=== PATIENT | female | born 1955 | race African-American/Black ===

== ENCOUNTER 2017-01-23 13:50 | Emergency (ER) | payer OTHER ==
[2017-01-23 13:54] VITALS: BP 177/83; PULSE 79; TEMP 98.6; BMI 24.2
[2017-01-23] MEDS ORDERED: OXYCODONE/APAP 5/325MG COMBO TABLET PO ONE (15:43)
[2017-01-23] MEDS ORDERED: OXYCODONE/APAP 5/325MG COMBO TABLET ONE (15:45)
--- NOTE | 2017-01-23 15:52 | PDOC ---
History of Present Illness - General Chief Complaint: Pain, Acute Stated Complaint: LT LEG PAIN Time Seen by Provider: 01/23/17 15:33 History Source: Patient Exam Limitations: No Limitations - History of Present Illness Initial Comments: 01/23/17 15:45 61 yr female with left lower leg pain to buttock and outer thigh worse with sitting to standing and ambulation. no saddle anesthesia, neg urine or bowel dysfunction. no abd pain. Pt has history of renal disease, DM, HTN. Occurred: reports: other (4 days) Severity: Yes: moderate Lower Extremity Pain Location: left: leg Past History - Past Medical History Allergies/Adverse Reactions: Allergies Allergy/AdvReac Type Severity Reaction Status Date / Time Penicillins Allergy Rash Verified 01/23/17 13:55 Home Medications: Ambulatory Orders Hydralazine HCl [Apresoline] 100 mg PO TID #0 tablet 02/25/13 Labetalol HCl [Trandate] 200 mg PO TID #0 tablet 02/25/13 Losartan Potassium [Cozaar] 100 mg PO HS #0 tablet 02/25/13 Nifedipine ER [Procardia XL -] 60 mg PO DAILY #0 tab.er.24 02/25/13 Torsemide [Demadex -] 100 mg PO DAILY #0 tablet 02/25/13 Cholecalciferol (Vitamin D3) [Vitamin D] 0 unit PO DAILY 06/19/14 Sevelamer Carbonate [Renvela] 2,400 mg PO AC 06/19/14 Oxycodone HCl/Acetaminophen [Percocet 5-325 mg Tablet] 1 - 2 tab PO Q6H PRN #14 tab MDD 6 01/23/17 Diabetes: Yes Dialysis: Yes (PERITONEAL, has right side av fistula not being used) HTN: Yes - Immunization History Immunization Up to Date: Yes - Psycho/Social/Smoking Cessation Hx Anxiety: No Suicidal Ideation: No Smoking Status: Yes Smoking History: Current every day smoker Have you smoked in the past 12 months: Yes Number of Cigarettes Smoked Daily: 10 Information on smoking cessation initiated: No 'Breaking Loose' booklet given: 06/07/16 Hx Alcohol Use: No Drug/Substance Use Hx: No Substance Use Type: None Hx Substance Use Treatment: No Review of Systems - Review of Systems Able to Perform ROS?: Yes Is the patient limited Salvadorean proficient: No Constitutional: No: Symptoms Reported HEENTM: No: Symptoms Reported Respiratory: No: Symptoms reported Cardiac (ROS): No: Symptoms Reported ABD/GI: No: Symptoms Reported : No: Symptoms Reported Musculoskeletal: Yes: See HPI *Physical Exam - Vital Signs Last Vital Signs Temp Pulse Resp BP Pulse Ox 98.6 F 79 18 177/83 98 01/23/17 13:51 01/23/17 13:51 01/23/17 13:51 01/23/17 13:51 01/23/17 13:51 - Physical Exam General Appearance: Yes: Nourished, Appropriately Dressed HEENT: positive: EOMI, DERRICK Neck: positive: Supple Respiratory/Chest: positive: Lungs Clear, Normal Breath Sounds Cardiovascular: positive: Regular Rhythm, Regular Rate Gastrointestinal/Abdominal: positive: Normal Bowel Sounds, Soft. negative: Tender Lymphatic: negative: Adenopathy Musculoskeletal: positive: Normal Inspection, Decreased Range of Motion. negative: CVA Tenderness, CVA Tenderness (R) Extremity: positive: Normal Capillary Refill, Normal Inspection, Normal Range of Motion, Other (point tenderness to left buttock muslce area ) ED Treatment Course - RADIOLOGY Radiology Studies Ordered: Category Date Time Status SPINE-LUMBAR ONLY [RAD] Stat Radiology 01/23/17 15:43 Ordered Medical Decision Making - Medical Decision Making 01/23/17 15:47 cc: left leg pain for 4 days getting worse , no trauma, pt states pain is in her left buttock radiates to outer thigh and calf worse with sitting and lying down. neg numbness or tingling neg saddle anesthesia neg bowel or urine complaints pt with kidney disease unable to have NSAIDS, diabetic unable to have steroids will give percocet *DC/Admit/Observation/Transfer Diagnosis at time of Disposition: Sciatic leg pain - Discharge Dispostion Disposition: HOME Condition at time of disposition: Good - Prescriptions Prescriptions: Oxycodone HCl/Acetaminophen [Percocet 5-325 mg Tablet] 1 - 2 tab PO Q6H PRN #14 tab MDD 6 PRN Reason: Severe Pain - Referrals Referrals: Ankit Ariza MD [Primary Care Provider] - Cornell Lanza MD [Staff Physician] - - Patient Instructions Additional Instructions: please call the orthopedist on Tuesday or see your primary care doctor for follow up take the percocet for severe pain also apply Biofreeze or Icy Hot rubbing cream (over the counter) to low back to left buttock
== END 2017-01-23 16:40 | disposition home or self-care (01) ==
LOC: SUPCPDRO 13:50 → JERFT 13:50
DX: M54.42 Lumbago with sciatica, left side (principal); I12.0 Hypertensive chronic kidney disease with stage 5 chronic kidney disease or end stage renal disease; E11.22 Type 2 diabetes mellitus with diabetic chronic kidney disease; N18.6 End stage renal disease; N17.8 Other acute kidney failure; Z99.2 Dependence on renal dialysis; Z79.84 Long term (current) use of oral hypoglycemic drugs
CPT/HCPCS: 72100-TC; 99281-25

== ENCOUNTER 2017-06-01 14:59 | Day surgery (SDC) | payer OTHER, MEDICARE ==
[2017-05-31 17:11] VITALS: BMI 24.2
[2017-06-01] MEDS ORDERED: VANCOMYCIN 1,000 MG VIAL (RESTRICTED TO ID ONLY) ONE (15:37)
--- NOTE | 2017-06-01 16:32 | HP ---
[facility] - Chief Complaint History of Present Illness: 61 year old woman with renal failure on dialysis. She was using PD catheetr which was removed 10 days ago due to skin infection. SHe has AV fistula for hemodialysis. - Past Medical History Allergies/Adverse Reactions: Allergies Allergy/AdvReac Type Severity Reaction Status Date / Time Penicillins Allergy Rash Verified 06/01/17 15:35 Cardiovascular: Yes: HTN Renal/: Yes: Renal Failure Endocrine: Yes: Diabetes Mellitus - Current Medications Current Medications: Home Medications Medication Instructions Recorded Hydralazine HCl [Apresoline] 100 mg PO TID #0 tablet 02/25/13 Labetalol HCl [Trandate] 200 mg PO TID #0 tablet 02/25/13 Losartan Potassium [Cozaar] 100 mg PO HS #0 tablet 02/25/13 Nifedipine ER [Procardia XL -] 60 mg PO DAILY #0 tab.er.24 02/25/13 Torsemide [Demadex -] 100 mg PO DAILY #0 tablet 02/25/13 Cholecalciferol (Vitamin D3) 0 unit PO DAILY 06/19/14 [Vitamin D] Sevelamer Carbonate [Renvela] 2,400 mg PO AC 06/19/14 Cinacalcet HCl [Sensipar] 60 mg PO 05/31/17 Glipizide 5 mg PO 05/31/17 [facility] Physical Exam - Physical Examination Vital Signs: Vital Signs Period Temp Pulse Resp BP Sys/Alvarez Pulse Ox Last 24 Hr 98.0 F 72 16 148/78 96 General Appearance: Well Developed ENT: Clear Lung: Clear to auscultation Heart: Regular rate & rhythm Abdomen: Soft, Other (Lower abdominal ancision clean and dry. Sutures intact) [facility] Impression/Plan - Impression/Plan Impression: ESRD. Patient wants to continue with peritoneal dialysis. Operative Procedure: Laparoscopic placement of peritoneal dialysis catheter Date to be Performed: 06/01/17
[2017-06-01] MEDS ORDERED: ROCURONIUM BROMIDE 50 MG/5 ML VIAL ONE (16:57)
[2017-06-01] MEDS ORDERED: MIDAZOLAM HCL 2 MG/2 ML SINGLE DOSE VIAL ONE (16:57)
[2017-06-01] MEDS ORDERED: VANCOMYCIN 1,000 MG VIAL (RESTRICTED TO ID ONLY) IVPB ONE (17:26)
[2017-06-01] MEDS ORDERED: DEXAMETHASONE SOD PHOSPHATE 4 MG/1 ML VIAL ONE (17:45)
[2017-06-01] MEDS ORDERED: BUPIVACAINE HCL/PF 0.5% (5MG/ML) 10 ML VIAL IJ ONE ×2 (17:52)
[2017-06-01] MEDS ORDERED: GLYCOPYRROLATE 0.2 MG/1 ML VIAL ONE (17:57)
[2017-06-01] MEDS ORDERED: NEOSTIGMINE METHYLSULFATE 0.5 MG/ML - 10 ML MDV ONE (17:57)
--- NOTE | 2017-06-01 17:59 | OP ---
Operative Note - Note: Operative Date: 06/01/17 Pre-Operative Diagnosis: ESRD on dialysis Operation: Laparoscopic placement of peritoneal dialysis catheter Findings: No adhesions. Implants: [place] neck pigtail tenckhoff Post-Operative Diagnosis: Same as Pre-op Surgeon: Marlon Roth Anesthesiologist/STEEL UNLOADER: Quin Graham Anesthesia: General
[2017-06-01] MEDS ORDERED: oxyCODONE HCL 5 MG TABLET PO PRN ×4 (18:03→18:05)
[2017-06-01] MEDS ORDERED: ACETAMINOPHEN 325 MG TABLET (FP) PO PRN ×4 (18:03→18:05)
[2017-06-01] MEDS ORDERED: ONDANSETRON 4 MG/2 ML VIAL IVPUSH PRN (18:13)
[2017-06-01 18:56] VITALS: TEMP 98.2
--- NOTE | 2017-06-01 20:22 | OP ---
DATE OF OPERATION: 06/01/2017 SURGEON: Marlon Roth M.D. PROCEDURE: Laparoscopic placement of peritoneal dialysis catheter. INDICATION: End-stage renal disease on dialysis. POSTOPERATIVE DIAGNOSIS: End-stage renal disease on dialysis. ANESTHESIA: General. ANESTHESIOLOGIST: Quin Graham D.O. OPERATIVE FINDINGS: Peritoneal cavity was free of adhesions. There was some ascitic fluid in the pelvis upon entering. OPERATIVE PROCEDURE: Following routine patient identification, general anesthesia was induced. The abdomen was prepped with Chloraprep. Timeout was performed. Then 0.5% Marcaine was infiltrated subcutaneously in the midline in the upper abdomen , and a 5-mm skin incision made. A 5-mm Visiport was then inserted under direct laparoscopic visualization, entering the peritoneal cavity. Pneumoperitoneum was established with carbon dioxide to 15 mmHg and then 5-mm angled laparoscope was inserted. Additional Marcaine was infiltrated to the left of the midline just above the umbilicus, and then an 8-mm incision was made. An 8-mm blunt port trocar was then advanced until the tip was seen on top of the peritoneum. The port was then directed inferiorly towards the pelvis, and then to the peritoneal cavity below the umbilicus. A pigtail double-cuff Tenckhoff catheter was then advanced through the port and positioned in the pelvis. The cuff was left just above the fascia. The port was removed. The end of the tube was attached to a curved tunnel, which was passed subcutaneously to exit on the right abdominal wall at the previously chosen site. The Luer-Nirali adaptor was attached to the tubing, and then 1 L of saline was run into the peritoneal cavity after removing the carbon dioxide. This took approximately 3 minutes. The bag was dropped to the floor, and the fluid drained rapidly. Ports were removed. The incisions were closed with subcutaneous sutures of 3-0 Vicryl and subcuticular suture of 4-0 Biosyn. Dermabond glue was applied as a dressing. The catheter was covered with a Biopatch and Tegaderm, and then an ABD pad was placed over the tubing. Patient was then awakened from anesthesia and taken to the recovery room in stable condition. Lex WARD/[id number] MTDD
[2017-06-01 20:36] VITALS: BP 153/64; PULSE 79
== END 2017-06-01 19:30 | disposition home or self-care (01) ==
LOC: JASU-SURG 14:59
PROVIDERS: ATTEND Surgery
PROC: 0WHG43Z Insertion of Infusion Device into Peritoneal Cavity, Percutaneous Endoscopic Approach (ICD-10-PCS; principal; 2017-06-01 16:30)
DX: I12.0 Hypertensive chronic kidney disease with stage 5 chronic kidney disease or end stage renal disease (principal); E11.22 Type 2 diabetes mellitus with diabetic chronic kidney disease; N18.6 End stage renal disease; Z72.0 Tobacco use
CPT/HCPCS: 36415; 84132; 94760

== ENCOUNTER 2021-12-18 13:42 | Emergency (ER) | payer OTHER, MEDICARE ==
[2021-12-18 13:59] VITALS: BP 133/79; PULSE 93; TEMP 98; BMI 24.9
[2021-12-18 15:30] LABS: BASO % 1.1 % (0-2.0); EOS % 3.5 % (0-4.5); HEMATOCRIT 27.1 % (32.4-45.2); LYMPH % 16.4 % (8-40); MCH 30.9 pg (25.7-33.7); MCHC 33.1 g/dl (32.0-36.0); MEAN CELL VOLUME 93.4 fl (80-96); MEAN PLT VOLUME 8.4 fl (7.5-11.1); PLATELET COUNT 237 10^3/uL (134-434); RDW 15.2 % (11.6-15.6); WHITE BLOOD COUNT 4.8 K/mm3 (4.0-10.0)
[2021-12-18 15:37] LABS: INR 1.8 (0.83-1.09); PROTHROMBIN TIME (PATIENT) 20.8 SEC (9.7-13.0)
[2021-12-18 15:40] LABS: ACTIVATED PTT 35.6 SECONDS (25.2-36.5)
[2021-12-18 15:54] LABS: CHLORIDE 92 mmol/L (98-107); SODIUM 133 mmol/L (136-145)
[2021-12-18 15:56] LABS: CALCIUM 8.9 mg/dL (8.5-10.1)
[2021-12-18 15:57] LABS: ALBUMIN 1.9 g/dl (3.4-5.0); ANION GAP 12 MMOL/L (8-16); CO2 29 mmol/L (21-32); GLUCOSE,RANDOM 209 mg/dL (74-106); MAGNESIUM 2.1 mg/dL (1.8-2.4)
[2021-12-18 16:00] LABS: PHOSPHOROUS 5.9 mg/dL (2.5-4.9); SGOT/AST 13 U/L (15-37); SGPT/ALT 12 U/L (13-61)
[2021-12-18 16:01] LABS: TOT PROT 5.5 g/dl (6.4-8.2)
[2021-12-18 16:02] LABS: ALK PHOS 180 U/L (45-117); BILIRUBIN,TOTAL 0.5 mg/dL (0.2-1)
[2021-12-18 16:09] LABS: BLOOD UREA NITROGEN 136.4 mg/dL (7-18); CREATININE 9.9 mg/dL (0.55-1.3)
[2021-12-18] MEDS ORDERED: SODIUM CHLORIDE 250 ML IV PRN ×2 (16:48→16:53)
== END 2021-12-18 17:18 | disposition left against medical advice (07) ==
LOC: JER 13:42
DX: Z53.21 Procedure and treatment not carried out due to patient leaving prior to being seen by health care provider (principal)
CPT/HCPCS: 36415; 71045-TC-FY; 74019-TC-FY; 80053; 83735; 84100; 85025; 85610; 85730; 86850; 86900; 86901; 93005; 93010; 99281-25

== ENCOUNTER 2023-03-01 17:41 | Inpatient (IN) | payer OTHER, MEDICARE ==
[2023-03-01] MEDS ORDERED: ACETAMINOPHEN 1000 MG/100 ML BAG IVPB ONE (19:09)
[2023-03-01] MEDS ORDERED: PIPERACILLIN/TAZOB 4.5 GM 4.5 GM in DEXTROSE 5%-WATER 100 ML IVPB ONE (20:25)
[2023-03-01] MEDS ORDERED: VANCOMYCIN 1 GM in D5W (PRE-DOCKED) 1,000 MG/250 ML (RESTRICTED TO ID ONLY IVPB ONE (20:26)
[2023-03-01] MEDS ORDERED: ACETAMINOPHEN INJECTION 100 ML IVPB ONE (20:34)
[2023-03-01] MEDS ORDERED: LORazepam 2 MG TABLET PO ONE (20:34)
[2023-03-01] MEDS ORDERED: PIPERACILLIN/TAZOB 3.375 GM 3.375 GM/50 ML BAG IVPB ONE (20:35)
[2023-03-01] MEDS ORDERED: LORazepam 0.5 MG TABLET ONE (21:01)
[2023-03-01] MEDS ORDERED: VANCOMYCIN/WATER FOR INJ (PEG) 1,000 MG/200 ML BAG IVPB ONE (21:02)
[2023-03-01 21:11] LABS: BASO % 0.7 % (0-2.0); EOS % 0.8 % (0-4.5); HEMATOCRIT 30.6 % (32.4-45.2); HEMOGLOBIN 9.8 GM/dL (10.7-15.3); LYMPH % 4.9 % (8-40); MCH 31.1 pg (25.7-33.7); MCHC 32.2 g/dl (32.0-36.0); MEAN CELL VOLUME 96.6 fl (80-96); MEAN PLT VOLUME 8.6 fl (7.5-11.1); MONO % 2.9 % (3.8-10.2); NEUT % 90.7 % (42.8-82.8); PLATELET COUNT 258 10^3/uL (134-434); RBC 3.16 M/mm3 (3.60-5.2); RDW 16.9 % (11.6-15.6); WHITE BLOOD COUNT 12.7 K/mm3 (4.0-10.0)
[2023-03-01 21:14] LABS: CHLORIDE 97 mmol/L (98-107); POTASSIUM 4.5 mmol/L (3.5-5.1); SODIUM 134 mmol/L (136-145)
[2023-03-01 21:16] LABS: CALCIUM 7.9 mg/dL (8.5-10.1)
[2023-03-01 21:17] LABS: ALBUMIN 1.3 g/dl (3.4-5.0); ANION GAP 14 MMOL/L (8-16); BLOOD UREA NITROGEN 82.3 mg/dL (7-18); CO2 23 mmol/L (21-32)
[2023-03-01 21:19] LABS: INR 1.24 (0.83-1.09); PROTHROMBIN TIME (PATIENT) 14.3 SEC (9.7-13.0)
[2023-03-01 21:20] LABS: SGOT/AST 19 U/L (15-37); SGPT/ALT 15 U/L (13-61)
[2023-03-01 21:21] LABS: ACTIVATED PTT 29.2 SECONDS (25.2-36.5); BILIRUBIN,TOTAL 0.4 mg/dL (0.2-1)
[2023-03-01 21:23] LABS: ALK PHOS 157 U/L (45-117); CREATININE 10.8 mg/dL (0.55-1.3); GLUCOSE,RANDOM 430 mg/dL (74-106); TOT PROT 5.6 g/dl (6.4-8.2)
[2023-03-01] MEDS ORDERED: INSULIN (NOVOLOG) ASPART 100 UNITS/ML 10ML VIAL SQ ONE (22:55)
[2023-03-02 00:22] LABS: CHLORIDE 97 mmol/L (98-107); SODIUM 133 mmol/L (136-145)
[2023-03-02 00:23] LABS: CALCIUM 7.7 mg/dL (8.5-10.1)
[2023-03-02 00:24] LABS: ANION GAP 14 MMOL/L (8-16); BLOOD UREA NITROGEN 84.5 mg/dL (7-18); CO2 22 mmol/L (21-32); GLUCOSE,RANDOM 390 mg/dL (74-106)
[2023-03-02 00:37] LABS: CREATININE 10.7 mg/dL (0.55-1.3)
[2023-03-02] MEDS: INSULIN (LEVEMIR) 100 UNITS/ML UNITS SQ SCH (06:56)
[2023-03-02] MEDS: INSULIN SLIDING SCALE (NOVOLOG) 1 VIAL SQ SCH ×4 (06:57→22:06)
[2023-03-02] MEDS ORDERED: HYDROmorphone HCl 2 MG/ML VIAL IVPUSH PRN (07:08)
[2023-03-02] MEDS ORDERED: HYDROmorphone HCl 2 MG/ML VIAL IVPUSH ONE (07:11)
[2023-03-02] MEDS ORDERED: PIPERACILLIN/TAZOB 2.25 GM 2.25 GM in DEXTROSE 5%-WATER - 50 ML IVPB SCH (08:00)
[2023-03-02] MEDS: PANTOPRAZOLE 40 MG TABLET PO SCH (09:52)
[2023-03-02] MEDS: VITAMIN B COMP W-C 1 EA TABLET (NEPHRO-VITE) PO SCH (09:52)
[2023-03-02 10:28] LABS: HEMATOCRIT 28.5 % (32.4-45.2); HEMOGLOBIN 9.4 GM/dL (10.7-15.3); MCH 31.5 pg (25.7-33.7); MEAN CELL VOLUME 95.3 fl (80-96); MEAN PLT VOLUME 8.9 fl (7.5-11.1); PLATELET COUNT 265 10^3/uL (134-434); RBC 2.99 M/mm3 (3.60-5.2); RDW 16.5 % (11.6-15.6); WHITE BLOOD COUNT 12.7 K/mm3 (4.0-10.0)
[2023-03-02 10:51] LABS: CHLORIDE 97 mmol/L (98-107); SODIUM 132 mmol/L (136-145)
[2023-03-02 10:56] LABS: BLOOD UREA NITROGEN 89.6 mg/dL (7-18); GLUCOSE,RANDOM 166 mg/dL (74-106)
[2023-03-02 10:59] LABS: PHOSPHOROUS 5.2 mg/dL (2.5-4.9); SGOT/AST 16 U/L (15-37); SGPT/ALT 16 U/L (13-61)
[2023-03-02 11:01] LABS: BILIRUBIN,TOTAL 0.4 mg/dL (0.2-1); TOT PROT 5.2 g/dl (6.4-8.2)
[2023-03-02 11:02] LABS: ALK PHOS 149 U/L (45-117)
[2023-03-02 11:05] LABS: CALCIUM 8.1 mg/dL (8.5-10.1)
[2023-03-02 11:06] LABS: ALBUMIN 1.2 g/dl (3.4-5.0); ANION GAP 14 MMOL/L (8-16); CO2 22 mmol/L (21-32); MAGNESIUM 1.9 mg/dL (1.8-2.4)
[2023-03-02 11:08] LABS: CREATININE 11.1 mg/dL (0.55-1.3)
[2023-03-02] MEDS: CEFTRIAXONE 1 GM in DEXTROSE 5%-WATER - 50 ML IVPB SCH (12:38)
[2023-03-02] MEDS ORDERED: PERITONEAL DIALYSIS 2.5% SOLN 2,500 ML IP SCH (13:00)
[2023-03-02] MEDS ORDERED: SODIUM CHLORIDE 250 ML IV PRN (13:57)
[2023-03-02] MEDS: HEPARIN NA (PORCINE) 5,000 UNITS/ML 1ML VIAL SQ SCH ×2 (14:31→22:05)
[2023-03-02] MEDS ORDERED: CLOPIDOGREL BISULFATE 75 MG TABLET (FP) PO SCH (14:35)
[2023-03-02] MEDS ORDERED: oxyCODONE HCL 5 MG TABLET PO PRN (18:19)
[2023-03-02] MEDS ORDERED: ATORVASTATIN CA 80 MG TABLET (FP) PO SCH (22:00)
[2023-03-02] MEDS ORDERED: AMIODARONE HCL 200 MG TABLET PO SCH (22:00)
[2023-03-03] MEDS: HEPARIN NA (PORCINE) 5,000 UNITS/ML 1ML VIAL SQ SCH (06:33)
[2023-03-03] MEDS: INSULIN (LEVEMIR) 100 UNITS/ML UNITS SQ SCH (06:33)
[2023-03-03] MEDS: INSULIN SLIDING SCALE (NOVOLOG) 1 VIAL SQ SCH ×4 (06:33→21:42)
[2023-03-03 09:25] LABS: HEMATOCRIT 31.1 % (32.4-45.2); MCH 30.9 pg (25.7-33.7); MCHC 32.1 g/dl (32.0-36.0); MEAN CELL VOLUME 96.4 fl (80-96); MEAN PLT VOLUME 8.6 fl (7.5-11.1); PLATELET COUNT 261 10^3/uL (134-434); RBC 3.23 M/mm3 (3.60-5.2); RDW 16.9 % (11.6-15.6); WHITE BLOOD COUNT 9.5 K/mm3 (4.0-10.0)
[2023-03-03 09:33] LABS: INR 1.27 (0.83-1.09); PROTHROMBIN TIME (PATIENT) 14.7 SEC (9.7-13.0)
[2023-03-03 09:35] LABS: ACTIVATED PTT 29.9 SECONDS (25.2-36.5)
[2023-03-03] MEDS ORDERED: MIDAZOLAM HCL 2 MG/2 ML SINGLE DOSE VIAL ONE (09:38)
[2023-03-03 09:49] LABS: CHLORIDE 100 mmol/L (98-107); POTASSIUM 4.5 mmol/L (3.5-5.1); SODIUM 137 mmol/L (136-145)
[2023-03-03 09:59] LABS: ANION GAP 12 MMOL/L (8-16); BLOOD UREA NITROGEN 68.2 mg/dL (7-18); CALCIUM 8.4 mg/dL (8.5-10.1); CO2 24 mmol/L (21-32); GLUCOSE,RANDOM 76 mg/dL (74-106); MAGNESIUM 1.8 mg/dL (1.8-2.4)
[2023-03-03] MEDS ORDERED: CLOPIDOGREL BISULFATE 75 MG TABLET (FP) PO SCH ×2 (10:00)
[2023-03-03 10:05] LABS: CREATININE 9.2 mg/dL (0.55-1.3)
[2023-03-03] MEDS: CEFTRIAXONE 1 GM in DEXTROSE 5%-WATER - 50 ML IVPB SCH (10:05)
[2023-03-03] MEDS: VITAMIN B COMP W-C 1 EA TABLET (NEPHRO-VITE) PO SCH (10:05)
[2023-03-03] MEDS: PANTOPRAZOLE 40 MG TABLET PO SCH (10:05)
[2023-03-03] MEDS ORDERED: HEPARIN NA (PORCINE) 5,000 UNITS/ML 1ML VIAL ONE (14:14)
[2023-03-03] MEDS ORDERED: LIDOCAINE HCL 1%, 10 MG/ML (10ML VIAL) MDV ONE (14:15)
[2023-03-03] MEDS ORDERED: SODIUM CHLORIDE 250 ML IV PRN ×2 (14:50→17:27)
[2023-03-03] MEDS ORDERED: IOHEXOL 300 MG/ML INFUS..BTL IV ONE ×2 (15:04)
[2023-03-03] MEDS ORDERED: LIDOCAINE HCL 1%, 10 MG/ML (50 mL VIAL) INF ONE ×2 (15:04)
[2023-03-03] MEDS ORDERED: HEPARIN NA (PORCINE) 5,000 UNITS/ML 1ML VIAL SQ ONE (15:04)
[2023-03-03] MEDS ORDERED: CLINDAMYCIN 600 MG PREMIX BAG IVPB ONE (15:15)
[2023-03-03] MEDS ORDERED: ONDANSETRON 4 MG/2 ML VIAL IVPUSH PRN ×2 (17:11→17:27)
[2023-03-03] MEDS ORDERED: LACTATED RINGERS SOLUTION 1,000 ML IV SCH ×2 (17:15→17:27)
[2023-03-03] MEDS: AMIODARONE HCL 200 MG TABLET PO SCH (21:42)
[2023-03-03] MEDS: ATORVASTATIN CA 80 MG TABLET (FP) PO SCH (21:42)
[2023-03-04] MEDS: INSULIN SLIDING SCALE (NOVOLOG) 1 VIAL SQ SCH ×5 (06:31→22:26)
[2023-03-04] MEDS: HEPARIN NA (PORCINE) 5,000 UNITS/ML 1ML VIAL SQ SCH ×3 (06:33→21:15)
[2023-03-04] MEDS: INSULIN (LEVEMIR) 100 UNITS/ML UNITS SQ SCH (06:34)
[2023-03-04 08:20] LABS: CHLORIDE 100 mmol/L (98-107); POTASSIUM 5.3 mmol/L (3.5-5.1); SODIUM 136 mmol/L (136-145)
[2023-03-04 08:22] LABS: CALCIUM 8.6 mg/dL (8.5-10.1)
[2023-03-04 08:23] LABS: ALBUMIN 1.3 g/dl (3.4-5.0); ANION GAP 14 MMOL/L (8-16); BLOOD UREA NITROGEN 81.2 mg/dL (7-18); CO2 21 mmol/L (21-32); GLUCOSE,RANDOM 132 mg/dL (74-106); MAGNESIUM 1.9 mg/dL (1.8-2.4)
[2023-03-04 08:26] LABS: PHOSPHOROUS 6.8 mg/dL (2.5-4.9); SGOT/AST 13 U/L (15-37); SGPT/ALT 12 U/L (13-61)
[2023-03-04 08:27] LABS: TOT PROT 5.2 g/dl (6.4-8.2)
[2023-03-04 08:28] LABS: BILIRUBIN,TOTAL 0.4 mg/dL (0.2-1)
[2023-03-04 08:29] LABS: ALK PHOS 133 U/L (45-117)
[2023-03-04 08:30] LABS: CREATININE 10.2 mg/dL (0.55-1.3)
[2023-03-04] MEDS ORDERED: ASPIRIN 81 MG CHEWABLE TABLETS PO SCH (10:00)
[2023-03-04] MEDS: PANTOPRAZOLE 40 MG TABLET PO SCH (10:57)
[2023-03-04] MEDS: CLOPIDOGREL BISULFATE 75 MG TABLET (FP) PO SCH (10:57)
[2023-03-04] MEDS: CEFTRIAXONE 1 GM in DEXTROSE 5%-WATER - 50 ML IVPB SCH (10:57)
[2023-03-04] MEDS: VITAMIN B COMP W-C 1 EA TABLET (NEPHRO-VITE) PO SCH (10:57)
[2023-03-04 14:37] LABS: HEMATOCRIT 29.1 % (32.4-45.2); HEMOGLOBIN 9.4 GM/dL (10.7-15.3); MCH 30.4 pg (25.7-33.7); MCHC 32.2 g/dl (32.0-36.0); MEAN CELL VOLUME 94.4 fl (80-96); MEAN PLT VOLUME 8.4 fl (7.5-11.1); PLATELET COUNT 329 10^3/uL (134-434); RBC 3.08 M/mm3 (3.60-5.2); RDW 16.7 % (11.6-15.6)
[2023-03-04 21:03] LABS: POTASSIUM 4.1 mmol/L (3.5-5.1)
[2023-03-04 21:04] LABS: CALCIUM 8.1 mg/dL (8.5-10.1)
[2023-03-04 21:08] LABS: CREATININE 6.1 mg/dL (0.55-1.3)
[2023-03-04] MEDS: AMIODARONE HCL 200 MG TABLET PO SCH (21:15)
[2023-03-04] MEDS: ATORVASTATIN CA 80 MG TABLET (FP) PO SCH (21:15)
[2023-03-04 21:21] LABS: BLOOD UREA NITROGEN 40.5 mg/dL (7-18)
[2023-03-04] MEDS ORDERED: INSULIN (NOVOLOG) ASPART 100 UNITS/ML 10ML VIAL ONE (21:23)
[2023-03-05] MEDS: HEPARIN NA (PORCINE) 5,000 UNITS/ML 1ML VIAL SQ SCH ×3 (06:25→21:48)
[2023-03-05] MEDS: INSULIN (LEVEMIR) 100 UNITS/ML UNITS SQ SCH (06:25)
[2023-03-05] MEDS: INSULIN SLIDING SCALE (NOVOLOG) 1 VIAL SQ SCH ×4 (06:26→21:52)
[2023-03-05] MEDS ORDERED: INSULIN (NOVOLOG) ASPART 100 UNITS/ML 10ML VIAL ONE ×2 (07:19→16:41)
[2023-03-05 09:47] LABS: HEMATOCRIT 27.2 % (32.4-45.2); HEMOGLOBIN 8.8 GM/dL (10.7-15.3); MCH 30.8 pg (25.7-33.7); MCHC 32.2 g/dl (32.0-36.0); MEAN CELL VOLUME 95.5 fl (80-96); MEAN PLT VOLUME 8.6 fl (7.5-11.1); PLATELET COUNT 279 10^3/uL (134-434); RBC 2.84 M/mm3 (3.60-5.2); RDW 16.5 % (11.6-15.6); WHITE BLOOD COUNT 8.5 K/mm3 (4.0-10.0)
[2023-03-05] MEDS: VITAMIN B COMP W-C 1 EA TABLET (NEPHRO-VITE) PO SCH (10:17)
[2023-03-05] MEDS: CEFTRIAXONE 1 GM in DEXTROSE 5%-WATER - 50 ML IVPB SCH (10:17)
[2023-03-05] MEDS: CLOPIDOGREL BISULFATE 75 MG TABLET (FP) PO SCH (10:17)
[2023-03-05] MEDS: PANTOPRAZOLE 40 MG TABLET PO SCH (10:17)
[2023-03-05 17:08] LABS: IRON SERUM 28 ug/dL (50-175); TOTAL IRON BINDING CAPACITY 111 ug/dL (250-450)
[2023-03-05 17:26] LABS: RETICULOCYTES 1.59 % (0.5-1.5)
[2023-03-05] MEDS: ATORVASTATIN CA 80 MG TABLET (FP) PO SCH (21:47)
[2023-03-05] MEDS: AMIODARONE HCL 200 MG TABLET PO SCH (21:48)
[2023-03-06] MEDS: HEPARIN NA (PORCINE) 5,000 UNITS/ML 1ML VIAL SQ SCH ×3 (05:29→22:27)
[2023-03-06] MEDS: INSULIN (LEVEMIR) 100 UNITS/ML UNITS SQ SCH (06:04)
[2023-03-06] MEDS: INSULIN SLIDING SCALE (NOVOLOG) 1 VIAL SQ SCH ×4 (06:04→22:30)
[2023-03-06 09:32] LABS: HEMATOCRIT 26.3 % (32.4-45.2); HEMOGLOBIN 8.7 GM/dL (10.7-15.3); MCH 31.6 pg (25.7-33.7); MCHC 33.2 g/dl (32.0-36.0); MEAN CELL VOLUME 95.3 fl (80-96); PLATELET COUNT 283 10^3/uL (134-434); RBC 2.76 M/mm3 (3.60-5.2); RDW 16.1 % (11.6-15.6); WHITE BLOOD COUNT 7.9 K/mm3 (4.0-10.0)
[2023-03-06 09:33] LABS: BASO % 0.8 % (0-2.0); EOS % 1.3 % (0-4.5); LYMPH % 11.3 % (8-40); MEAN PLT VOLUME 8.2 fl (7.5-11.1); MONO % 5.6 % (3.8-10.2)
[2023-03-06 10:14] LABS: CHLORIDE 99 mmol/L (98-107); POTASSIUM 4.5 mmol/L (3.5-5.1); SODIUM 136 mmol/L (136-145)
[2023-03-06 10:16] LABS: ALBUMIN 1.2 g/dl (3.4-5.0); ANION GAP 11 MMOL/L (8-16); BLOOD UREA NITROGEN 52.8 mg/dL (7-18); CALCIUM 8.4 mg/dL (8.5-10.1); CO2 26 mmol/L (21-32); GLUCOSE,RANDOM 186 mg/dL (74-106); MAGNESIUM 1.8 mg/dL (1.8-2.4)
[2023-03-06 10:19] LABS: PHOSPHOROUS 5.6 mg/dL (2.5-4.9); SGOT/AST 15 U/L (15-37); SGPT/ALT 13 U/L (13-61)
[2023-03-06 10:21] LABS: BILIRUBIN,TOTAL 0.3 mg/dL (0.2-1); TOT PROT 5.3 g/dl (6.4-8.2)
[2023-03-06 10:22] LABS: ALK PHOS 147 U/L (45-117)
[2023-03-06 10:27] LABS: CREATININE 8.2 mg/dL (0.55-1.3)
[2023-03-06] MEDS: CEFTRIAXONE 1 GM in DEXTROSE 5%-WATER - 50 ML IVPB SCH (10:39)
[2023-03-06] MEDS: VITAMIN B COMP W-C 1 EA TABLET (NEPHRO-VITE) PO SCH (10:39)
[2023-03-06] MEDS: PANTOPRAZOLE 40 MG TABLET PO SCH (10:39)
[2023-03-06] MEDS: CLOPIDOGREL BISULFATE 75 MG TABLET (FP) PO SCH (10:39)
[2023-03-06] MEDS: SEVELAMER CARBONATE 800 MG TAB (FP) PO SCH (16:50)
[2023-03-06] MEDS: AMIODARONE HCL 200 MG TABLET PO SCH (22:27)
[2023-03-06] MEDS: ATORVASTATIN CA 80 MG TABLET (FP) PO SCH (22:27)
[2023-03-07] MEDS: INSULIN SLIDING SCALE (NOVOLOG) 1 VIAL SQ SCH ×4 (06:15→22:35)
[2023-03-07] MEDS: HEPARIN NA (PORCINE) 5,000 UNITS/ML 1ML VIAL SQ SCH ×3 (06:15→22:30)
[2023-03-07] MEDS: INSULIN (LEVEMIR) 100 UNITS/ML UNITS SQ SCH (06:15)
[2023-03-07] MEDS: SEVELAMER CARBONATE 800 MG TAB (FP) PO SCH ×3 (08:35→17:42)
[2023-03-07] MEDS ORDERED: SODIUM CHLORIDE 250 ML IV PRN (09:21)
[2023-03-07] MEDS: VITAMIN B COMP W-C 1 EA TABLET (NEPHRO-VITE) PO SCH (09:22)
[2023-03-07] MEDS: PANTOPRAZOLE 40 MG TABLET PO SCH (09:22)
[2023-03-07] MEDS: CLOPIDOGREL BISULFATE 75 MG TABLET (FP) PO SCH (09:22)
[2023-03-07] MEDS: CEFTRIAXONE 1 GM in DEXTROSE 5%-WATER - 50 ML IVPB SCH (09:22)
[2023-03-07 10:33] LABS: EOS % 2.1 % (0-4.5); HEMATOCRIT 28.2 % (32.4-45.2); HEMOGLOBIN 9.2 GM/dL (10.7-15.3); LYMPH % 10.1 % (8-40); MCH 31.2 pg (25.7-33.7); MCHC 32.6 g/dl (32.0-36.0); MEAN CELL VOLUME 95.8 fl (80-96); MONO % 5.2 % (3.8-10.2); NEUT % 81.6 % (42.8-82.8); PLATELET COUNT 296 10^3/uL (134-434); RBC 2.95 M/mm3 (3.60-5.2); RDW 16.4 % (11.6-15.6); WHITE BLOOD COUNT 8.4 K/mm3 (4.0-10.0)
[2023-03-07 10:45] LABS: CHLORIDE 99 mmol/L (98-107); POTASSIUM 5.2 mmol/L (3.5-5.1); SODIUM 138 mmol/L (136-145)
[2023-03-07 10:52] LABS: ALBUMIN 1.3 g/dl (3.4-5.0); ANION GAP 14 MMOL/L (8-16); BLOOD UREA NITROGEN 63.7 mg/dL (7-18); CALCIUM 8.5 mg/dL (8.5-10.1); CO2 25 mmol/L (21-32)
[2023-03-07 10:53] LABS: GLUCOSE,RANDOM 192 mg/dL (74-106); SGOT/AST 15 U/L (15-37); SGPT/ALT 14 U/L (13-61)
[2023-03-07 10:54] LABS: BILIRUBIN,TOTAL 0.3 mg/dL (0.2-1); TOT PROT 5.4 g/dl (6.4-8.2)
[2023-03-07 10:55] LABS: ALK PHOS 142 U/L (45-117)
[2023-03-07 10:57] LABS: CREATININE 9.3 mg/dL (0.55-1.3)
[2023-03-07] MEDS ORDERED: EPOETIN ALFA-EPBX 10,000 UNIT/ML VIAL IVPUSH ONE (12:30)
[2023-03-07] MEDS: ATORVASTATIN CA 80 MG TABLET (FP) PO SCH (22:31)
[2023-03-07] MEDS: AMIODARONE HCL 200 MG TABLET PO SCH (22:31)
[2023-03-07] MEDS ORDERED: MELATONIN 5 MG TABLETS PO ONE (23:03)
[2023-03-08] MEDS: INSULIN SLIDING SCALE (NOVOLOG) 1 VIAL SQ SCH ×3 (07:53→21:40)
[2023-03-08] MEDS: INSULIN (LEVEMIR) 100 UNITS/ML UNITS SQ SCH (07:54)
[2023-03-08] MEDS: SEVELAMER CARBONATE 800 MG TAB (FP) PO SCH ×2 (08:01→17:31)
[2023-03-08 08:26] LABS: HEMATOCRIT 27.4 % (32.4-45.2); HEMOGLOBIN 8.6 GM/dL (10.7-15.3); MCH 30.8 pg (25.7-33.7); MCHC 31.3 g/dl (32.0-36.0); MEAN CELL VOLUME 98.3 fl (80-96); MEAN PLT VOLUME 8.5 fl (7.5-11.1); PLATELET COUNT 288 10^3/uL (134-434); RBC 2.79 M/mm3 (3.60-5.2); RDW 16.6 % (11.6-15.6); WHITE BLOOD COUNT 8.5 K/mm3 (4.0-10.0)
[2023-03-08 08:29] LABS: INR 1.22 (0.83-1.09); PROTHROMBIN TIME (PATIENT) 14.1 SEC (9.7-13.0)
[2023-03-08 08:39] LABS: POTASSIUM 4.4 mmol/L (3.5-5.1)
[2023-03-08 08:46] LABS: ALBUMIN 1.3 g/dl (3.4-5.0); CALCIUM 8.4 mg/dL (8.5-10.1)
[2023-03-08 08:47] LABS: BLOOD UREA NITROGEN 40.5 mg/dL (7-18); MAGNESIUM 1.8 mg/dL (1.8-2.4)
[2023-03-08 08:51] LABS: BILIRUBIN,TOTAL 0.5 mg/dL (0.2-1); CREATININE 6.5 mg/dL (0.55-1.3); PHOSPHOROUS 4.9 mg/dL (2.5-4.9); TOT PROT 5.2 g/dl (6.4-8.2)
[2023-03-08] MEDS: PANTOPRAZOLE 40 MG TABLET PO SCH (09:55)
[2023-03-08] MEDS: CEFTRIAXONE 1 GM in DEXTROSE 5%-WATER - 50 ML IVPB SCH (09:55)
[2023-03-08] MEDS: VITAMIN B COMP W-C 1 EA TABLET (NEPHRO-VITE) PO SCH (09:55)
[2023-03-08] MEDS: CLOPIDOGREL BISULFATE 75 MG TABLET (FP) PO SCH (09:55)
[2023-03-08] MEDS ORDERED: LIDOCAINE HCL 1%, 10 MG/ML (10ML VIAL) MDV ONE (11:33)
[2023-03-08] MEDS ORDERED: BUPIVACAINE HCL/PF 0.25% (2.5MG/ML) 10 ML VIAL ONE (11:34)
[2023-03-08] MEDS ORDERED: MIDAZOLAM HCL 2 MG/2 ML SINGLE DOSE VIAL ONE (12:04)
[2023-03-08] MEDS ORDERED: PROPOFOL 20 ML ONE (12:05)
[2023-03-08] MEDS ORDERED: CLINDAMYCIN 600MG PREMIX IVPB 600 MG/50 ML BAG IVPB ONE (12:32)
[2023-03-08] MEDS ORDERED: LIDOCAINE HCL 1%, 10 MG/ML (20ML VIAL) INF ONE (12:33)
[2023-03-08] MEDS ORDERED: BUPIVACAINE HCL 0.25% 125 MG/50 ML VIAL INF ONE ×2 (13:12)
[2023-03-08] MEDS: HEPARIN NA (PORCINE) 5,000 UNITS/ML 1ML VIAL SQ SCH ×2 (14:52→21:40)
[2023-03-08] MEDS ORDERED: SODIUM CHLORIDE 250 ML IV PRN (16:17)
[2023-03-08] MEDS ORDERED: INSULIN (NOVOLOG) ASPART 100 UNITS/ML 10ML VIAL ONE (21:32)
[2023-03-08] MEDS: ATORVASTATIN CA 80 MG TABLET (FP) PO SCH (21:40)
[2023-03-08] MEDS: AMIODARONE HCL 200 MG TABLET PO SCH (21:41)
[2023-03-09] MEDS: HEPARIN NA (PORCINE) 5,000 UNITS/ML 1ML VIAL SQ SCH ×3 (05:08→22:01)
[2023-03-09] MEDS ORDERED: INSULIN (NOVOLOG) ASPART 100 UNITS/ML 10ML VIAL ONE (06:13)
[2023-03-09] MEDS: INSULIN SLIDING SCALE (NOVOLOG) 1 VIAL SQ SCH ×4 (06:19→21:59)
[2023-03-09] MEDS: INSULIN (LEVEMIR) 100 UNITS/ML UNITS SQ SCH ×2 (06:19→21:59)
[2023-03-09] MEDS: SEVELAMER CARBONATE 800 MG TAB (FP) PO SCH ×3 (12:36→18:40)
[2023-03-09] MEDS: CEFTRIAXONE 1 GM in DEXTROSE 5%-WATER - 50 ML IVPB SCH (12:44)
[2023-03-09] MEDS: FAMOTIDINE 10 MG TABLET PO SCH (12:44)
[2023-03-09] MEDS: VITAMIN B COMP W-C 1 EA TABLET (NEPHRO-VITE) PO SCH (12:44)
[2023-03-09] MEDS: CLOPIDOGREL BISULFATE 75 MG TABLET (FP) PO SCH (12:51)
[2023-03-09] MEDS: ATORVASTATIN CA 80 MG TABLET (FP) PO SCH (21:52)
[2023-03-09] MEDS: AMIODARONE HCL 200 MG TABLET PO SCH (21:52)
[2023-03-09 23:38] VITALS: BMI 23.2
[2023-03-10] MEDS: HEPARIN NA (PORCINE) 5,000 UNITS/ML 1ML VIAL SQ SCH ×3 (06:11→22:07)
[2023-03-10] MEDS: INSULIN SLIDING SCALE (NOVOLOG) 1 VIAL SQ SCH ×4 (06:11→22:16)
[2023-03-10] MEDS: INSULIN (LEVEMIR) 100 UNITS/ML UNITS SQ SCH ×2 (06:39→22:08)
[2023-03-10] MEDS ORDERED: INSULIN (NOVOLOG) ASPART 100 UNITS/ML 10ML VIAL ONE ×3 (06:40→16:39)
[2023-03-10] MEDS: SEVELAMER CARBONATE 800 MG TAB (FP) PO SCH ×3 (08:28→16:40)
[2023-03-10] MEDS: CEFTRIAXONE 1 GM in DEXTROSE 5%-WATER - 50 ML IVPB SCH (09:28)
[2023-03-10] MEDS: FAMOTIDINE 10 MG TABLET PO SCH (09:28)
[2023-03-10] MEDS: VITAMIN B COMP W-C 1 EA TABLET (NEPHRO-VITE) PO SCH (09:28)
[2023-03-10] MEDS: CLOPIDOGREL BISULFATE 75 MG TABLET (FP) PO SCH (09:28)
[2023-03-10 10:10] LABS: BASO % 1.9 % (0-2.0); EOS % 3.5 % (0-4.5); HEMOGLOBIN 8.3 GM/dL (10.7-15.3); LYMPH % 13.6 % (8-40); MCH 30.3 pg (25.7-33.7); MCHC 30.8 g/dl (32.0-36.0); MEAN CELL VOLUME 98.4 fl (80-96); MEAN PLT VOLUME 8.3 fl (7.5-11.1); MONO % 8.7 % (3.8-10.2); NEUT % 72.3 % (42.8-82.8); PLATELET COUNT 260 10^3/uL (134-434); RBC 2.75 M/mm3 (3.60-5.2); RDW 16.6 % (11.6-15.6); WHITE BLOOD COUNT 5.6 K/mm3 (4.0-10.0)
[2023-03-10 10:25] LABS: POTASSIUM 4.3 mmol/L (3.5-5.1)
[2023-03-10 10:26] LABS: CALCIUM 8.7 mg/dL (8.5-10.1)
[2023-03-10 10:27] LABS: BLOOD UREA NITROGEN 29.7 mg/dL (7-18)
[2023-03-10 10:30] LABS: CREATININE 5.7 mg/dL (0.55-1.3)
[2023-03-10] MEDS: AMINO ACIDS/PROTEIN HYDROLYS 30 ML LIQUID.PKT PO SCH ×2 (11:54→16:39)
[2023-03-10] MEDS: AMIODARONE HCL 200 MG TABLET PO SCH (22:07)
[2023-03-10] MEDS: ATORVASTATIN CA 80 MG TABLET (FP) PO SCH (22:07)
[2023-03-11] MEDS: HEPARIN NA (PORCINE) 5,000 UNITS/ML 1ML VIAL SQ SCH ×3 (05:34→21:33)
[2023-03-11] MEDS: INSULIN SLIDING SCALE (NOVOLOG) 1 VIAL SQ SCH ×4 (06:12→21:34)
[2023-03-11] MEDS ORDERED: INSULIN (NOVOLOG) ASPART 100 UNITS/ML 10ML VIAL ONE ×4 (06:46→21:24)
[2023-03-11] MEDS: INSULIN (LEVEMIR) 100 UNITS/ML UNITS SQ SCH (07:19)
[2023-03-11] MEDS: SEVELAMER CARBONATE 800 MG TAB (FP) PO SCH ×3 (09:21→18:00)
[2023-03-11] MEDS: AMINO ACIDS/PROTEIN HYDROLYS 30 ML LIQUID.PKT PO SCH ×3 (09:21→18:00)
[2023-03-11] MEDS: CLOPIDOGREL BISULFATE 75 MG TABLET (FP) PO SCH (09:21)
[2023-03-11] MEDS: FAMOTIDINE 10 MG TABLET PO SCH (09:21)
[2023-03-11] MEDS: VITAMIN B COMP W-C 1 EA TABLET (NEPHRO-VITE) PO SCH (09:21)
[2023-03-11] MEDS: CEFTRIAXONE 1 GM in DEXTROSE 5%-WATER - 50 ML IVPB SCH (09:22)
[2023-03-11] MEDS ORDERED: SODIUM CHLORIDE 250 ML IV PRN (13:00)
[2023-03-11] MEDS: ATORVASTATIN CA 80 MG TABLET (FP) PO SCH (21:33)
[2023-03-11] MEDS: AMIODARONE HCL 200 MG TABLET PO SCH (21:33)
[2023-03-12] MEDS ORDERED: INSULIN (NOVOLOG) ASPART 100 UNITS/ML 10ML VIAL ONE (05:29)
[2023-03-12] MEDS: HEPARIN NA (PORCINE) 5,000 UNITS/ML 1ML VIAL SQ SCH ×3 (05:38→22:24)
[2023-03-12] MEDS: INSULIN SLIDING SCALE (NOVOLOG) 1 VIAL SQ SCH ×4 (06:27→22:25)
[2023-03-12] MEDS: INSULIN (LEVEMIR) 100 UNITS/ML UNITS SQ SCH (06:27)
[2023-03-12] MEDS: SEVELAMER CARBONATE 800 MG TAB (FP) PO SCH ×3 (08:09→17:01)
[2023-03-12] MEDS: AMINO ACIDS/PROTEIN HYDROLYS 30 ML LIQUID.PKT PO SCH ×3 (08:09→17:02)
[2023-03-12 09:44] LABS: HEMATOCRIT 29.6 % (32.4-45.2); HEMOGLOBIN 9.1 GM/dL (10.7-15.3); MCH 30.4 pg (25.7-33.7); MCHC 30.8 g/dl (32.0-36.0); MEAN CELL VOLUME 98.9 fl (80-96); MEAN PLT VOLUME 8.4 fl (7.5-11.1); PLATELET COUNT 293 10^3/uL (134-434); RDW 16.4 % (11.6-15.6); WHITE BLOOD COUNT 6.7 K/mm3 (4.0-10.0)
[2023-03-12] MEDS: CLOPIDOGREL BISULFATE 75 MG TABLET (FP) PO SCH (10:02)
[2023-03-12] MEDS: VITAMIN B COMP W-C 1 EA TABLET (NEPHRO-VITE) PO SCH (10:02)
[2023-03-12] MEDS: FAMOTIDINE 10 MG TABLET PO SCH (10:02)
[2023-03-12] MEDS: CEFTRIAXONE 2 GM in DEXTROSE 5%-WATER 100 ML IVPB SCH (10:02)
[2023-03-12 10:08] LABS: CHLORIDE 95 mmol/L (98-107); POTASSIUM 5.7 mmol/L (3.5-5.1); SODIUM 136 mmol/L (136-145)
[2023-03-12 10:10] LABS: ANION GAP 12 MMOL/L (8-16); CALCIUM 9.1 mg/dL (8.5-10.1); CO2 30 mmol/L (21-32); GLUCOSE,RANDOM 282 mg/dL (74-106)
[2023-03-12 10:14] LABS: BLOOD UREA NITROGEN 69.1 mg/dL (7-18); CREATININE 8.2 mg/dL (0.55-1.3)
[2023-03-12] MEDS ORDERED: INSULIN (LEVEMIR) 100 UNITS/ML UNITS SQ ONE (10:24)
[2023-03-12] MEDS ORDERED: SODIUM ZIRCONIUM CYCLOSILICATE (LOKELMA) 5 GM PACKET PO SCH (10:45)
[2023-03-12] MEDS: ATORVASTATIN CA 80 MG TABLET (FP) PO SCH (22:24)
[2023-03-12] MEDS: AMIODARONE HCL 200 MG TABLET PO SCH (22:24)
[2023-03-13] MEDS: HEPARIN NA (PORCINE) 5,000 UNITS/ML 1ML VIAL SQ SCH (05:17)
[2023-03-13] MEDS: INSULIN (LEVEMIR) 100 UNITS/ML UNITS SQ SCH (06:09)
[2023-03-13] MEDS: INSULIN SLIDING SCALE (NOVOLOG) 1 VIAL SQ SCH ×4 (06:09→23:25)
[2023-03-13] MEDS: AMINO ACIDS/PROTEIN HYDROLYS 30 ML LIQUID.PKT PO SCH ×3 (08:08→17:01)
[2023-03-13] MEDS: SEVELAMER CARBONATE 800 MG TAB (FP) PO SCH ×3 (08:08→17:01)
[2023-03-13] MEDS: CEFTRIAXONE 2 GM in DEXTROSE 5%-WATER 100 ML IVPB SCH (09:58)
[2023-03-13] MEDS: CLOPIDOGREL BISULFATE 75 MG TABLET (FP) PO SCH (09:58)
[2023-03-13] MEDS: VITAMIN B COMP W-C 1 EA TABLET (NEPHRO-VITE) PO SCH (09:58)
[2023-03-13] MEDS: FAMOTIDINE 10 MG TABLET PO SCH (09:58)
[2023-03-13] MEDS ORDERED: INSULIN (NOVOLOG) ASPART 100 UNITS/ML 10ML VIAL ONE ×2 (10:08→21:54)
[2023-03-13] MEDS: APIXABAN 2.5 MG TABLET PO SCH ×2 (11:09→23:34)
[2023-03-13] MEDS ORDERED: INSULIN (LEVEMIR) 100 UNITS/ML UNITS SQ ONE (12:36)
[2023-03-13] MEDS: AMIODARONE HCL 200 MG TABLET PO SCH (23:34)
[2023-03-13] MEDS: ATORVASTATIN CA 80 MG TABLET (FP) PO SCH (23:34)
[2023-03-14] MEDS: INSULIN SLIDING SCALE (NOVOLOG) 1 VIAL SQ SCH ×4 (06:23→21:41)
[2023-03-14] MEDS: INSULIN (LEVEMIR) 100 UNITS/ML UNITS SQ SCH (06:24)
[2023-03-14] MEDS: AMINO ACIDS/PROTEIN HYDROLYS 30 ML LIQUID.PKT PO SCH ×3 (08:08→16:40)
[2023-03-14] MEDS: SEVELAMER CARBONATE 800 MG TAB (FP) PO SCH ×3 (08:08→16:40)
[2023-03-14] MEDS: APIXABAN 2.5 MG TABLET PO SCH ×2 (09:09→21:36)
[2023-03-14] MEDS: FAMOTIDINE 10 MG TABLET PO SCH (09:10)
[2023-03-14] MEDS: CLOPIDOGREL BISULFATE 75 MG TABLET (FP) PO SCH (09:10)
[2023-03-14] MEDS: VITAMIN B COMP W-C 1 EA TABLET (NEPHRO-VITE) PO SCH (09:10)
[2023-03-14] MEDS: CEFTRIAXONE 2 GM in DEXTROSE 5%-WATER 100 ML IVPB SCH (09:10)
[2023-03-14 09:20] LABS: POTASSIUM 5.2 mmol/L (3.5-5.1)
[2023-03-14 09:25] LABS: BLOOD UREA NITROGEN 71.9 mg/dL (7-18); CALCIUM 9.1 mg/dL (8.5-10.1)
[2023-03-14 09:29] LABS: CREATININE 7.1 mg/dL (0.55-1.3)
[2023-03-14] MEDS ORDERED: INSULIN (NOVOLOG) ASPART 100 UNITS/ML 10ML VIAL ONE (10:54)
[2023-03-14] MEDS ORDERED: SODIUM CHLORIDE 250 ML IV PRN (15:00)
[2023-03-14] MEDS: SODIUM ZIRCONIUM CYCLOSILICATE (LOKELMA) 5 GM PACKET PO SCH (15:41)
[2023-03-14] MEDS: AMIODARONE HCL 200 MG TABLET PO SCH (21:36)
[2023-03-14] MEDS: ATORVASTATIN CA 80 MG TABLET (FP) PO SCH (21:36)
[2023-03-15] MEDS ORDERED: INSULIN (NOVOLOG) ASPART 100 UNITS/ML 10ML VIAL ONE ×5 (06:40→22:02)
[2023-03-15] MEDS: INSULIN SLIDING SCALE (NOVOLOG) 1 VIAL SQ SCH ×4 (06:42→22:03)
[2023-03-15] MEDS: INSULIN (LEVEMIR) 100 UNITS/ML UNITS SQ SCH (06:43)
[2023-03-15 09:39] LABS: HEMATOCRIT 28.1 % (32.4-45.2); HEMOGLOBIN 8.9 GM/dL (10.7-15.3); MCH 30.8 pg (25.7-33.7); MCHC 31.6 g/dl (32.0-36.0); MEAN CELL VOLUME 97.5 fl (80-96); PLATELET COUNT 313 10^3/uL (134-434); RBC 2.88 M/mm3 (3.60-5.2); WHITE BLOOD COUNT 6.7 K/mm3 (4.0-10.0)
[2023-03-15] MEDS: FAMOTIDINE 10 MG TABLET PO SCH (09:52)
[2023-03-15] MEDS: VITAMIN B COMP W-C 1 EA TABLET (NEPHRO-VITE) PO SCH (09:52)
[2023-03-15] MEDS: CLOPIDOGREL BISULFATE 75 MG TABLET (FP) PO SCH (09:52)
[2023-03-15] MEDS: CEFTRIAXONE 2 GM in DEXTROSE 5%-WATER 100 ML IVPB SCH (09:52)
[2023-03-15] MEDS: SEVELAMER CARBONATE 800 MG TAB (FP) PO SCH ×3 (09:53→18:35)
[2023-03-15] MEDS: SODIUM ZIRCONIUM CYCLOSILICATE (LOKELMA) 5 GM PACKET PO SCH (09:53)
[2023-03-15] MEDS: AMINO ACIDS/PROTEIN HYDROLYS 30 ML LIQUID.PKT PO SCH ×3 (09:53→18:34)
[2023-03-15] MEDS: APIXABAN 2.5 MG TABLET PO SCH ×2 (09:53→21:12)
[2023-03-15 09:59] LABS: CHLORIDE 97 mmol/L (98-107); POTASSIUM 5.4 mmol/L (3.5-5.1); SODIUM 136 mmol/L (136-145)
[2023-03-15 10:03] LABS: BLOOD UREA NITROGEN 91.2 mg/dL (7-18); GLUCOSE,RANDOM 224 mg/dL (74-106)
[2023-03-15 10:04] LABS: ANION GAP 12 MMOL/L (8-16); CO2 26 mmol/L (21-32)
[2023-03-15 10:05] LABS: CALCIUM 9.3 mg/dL (8.5-10.1)
[2023-03-15] MEDS: ATORVASTATIN CA 80 MG TABLET (FP) PO SCH (21:12)
[2023-03-15] MEDS: AMIODARONE HCL 200 MG TABLET PO SCH (21:12)
[2023-03-15] MEDS ORDERED: LORazepam 2 MG/ML SDV VIAL IVPUSH ONE (23:15)
[2023-03-16] MEDS ORDERED: INSULIN (NOVOLOG) ASPART 100 UNITS/ML 10ML VIAL ONE ×5 (05:37→21:22)
[2023-03-16] MEDS: INSULIN (LEVEMIR) 100 UNITS/ML UNITS SQ SCH (06:02)
[2023-03-16] MEDS: INSULIN SLIDING SCALE (NOVOLOG) 1 VIAL SQ SCH ×4 (06:03→21:38)
[2023-03-16] MEDS: SEVELAMER CARBONATE 800 MG TAB (FP) PO SCH ×3 (08:52→17:06)
[2023-03-16] MEDS: AMINO ACIDS/PROTEIN HYDROLYS 30 ML LIQUID.PKT PO SCH ×3 (08:52→17:06)
[2023-03-16 08:53] LABS: HEMATOCRIT 28.2 % (32.4-45.2); HEMOGLOBIN 8.5 GM/dL (10.7-15.3); MCH 29.9 pg (25.7-33.7); MCHC 30.2 g/dl (32.0-36.0); MEAN PLT VOLUME 8.3 fl (7.5-11.1); PLATELET COUNT 306 10^3/uL (134-434); RBC 2.85 M/mm3 (3.60-5.2); RDW 16.8 % (11.6-15.6); WHITE BLOOD COUNT 6.3 K/mm3 (4.0-10.0)
[2023-03-16 09:10] LABS: POTASSIUM 4.5 mmol/L (3.5-5.1)
[2023-03-16 09:14] LABS: CALCIUM 8.8 mg/dL (8.5-10.1)
[2023-03-16 09:18] LABS: CREATININE 6.2 mg/dL (0.55-1.3)
[2023-03-16 09:38] LABS: BLOOD UREA NITROGEN 64.6 mg/dL (7-18)
[2023-03-16] MEDS ORDERED: GENTAMICIN SO4 0.1% TOPICAL OINTMENT 15 GM/TUBE TUBE TP ONE (10:38)
[2023-03-16] MEDS ORDERED: MINERAL OIL/PET HY-PHL TOPICAL OINTMENT 454 GM JAR TP SCH (10:45)
[2023-03-16] MEDS: APIXABAN 2.5 MG TABLET PO SCH ×2 (10:52→21:36)
[2023-03-16] MEDS: CLOPIDOGREL BISULFATE 75 MG TABLET (FP) PO SCH (10:52)
[2023-03-16] MEDS: FAMOTIDINE 10 MG TABLET PO SCH (10:52)
[2023-03-16] MEDS: SODIUM ZIRCONIUM CYCLOSILICATE (LOKELMA) 5 GM PACKET PO SCH (10:52)
[2023-03-16] MEDS: VITAMIN B COMP W-C 1 EA TABLET (NEPHRO-VITE) PO SCH (10:52)
[2023-03-16] MEDS: MINERAL OIL/PET HY-PHL TOPICAL OINTMENT 454 GM JAR TP SCH ×2 (12:07→21:31)
[2023-03-16] MEDS ORDERED: SODIUM CHLORIDE 250 ML IV PRN (13:00)
[2023-03-16] MEDS: CEFTRIAXONE 2 GM in DEXTROSE 5%-WATER 100 ML IVPB SCH (15:30)
[2023-03-16] MEDS: ATORVASTATIN CA 80 MG TABLET (FP) PO SCH (21:36)
[2023-03-16] MEDS: AMIODARONE HCL 200 MG TABLET PO SCH (21:36)
[2023-03-17] MEDS ORDERED: ACETAMINOPHEN 500 MG TABLET (FP) PO ONE (00:33)
[2023-03-17 05:11] VITALS: PULSE 60; RESP 18
[2023-03-17] MEDS ORDERED: INSULIN (NOVOLOG) ASPART 100 UNITS/ML 10ML VIAL ONE ×2 (05:29→11:59)
[2023-03-17] MEDS ORDERED: INSULIN (LEVEMIR) 100 UNITS/ML UNITS SQ ONE (05:30)
[2023-03-17] MEDS: INSULIN (LEVEMIR) 100 UNITS/ML UNITS SQ SCH (06:44)
[2023-03-17] MEDS: INSULIN SLIDING SCALE (NOVOLOG) 1 VIAL SQ SCH ×2 (06:46→11:20)
[2023-03-17] MEDS: AMINO ACIDS/PROTEIN HYDROLYS 30 ML LIQUID.PKT PO SCH ×2 (08:00→11:39)
[2023-03-17] MEDS: SEVELAMER CARBONATE 800 MG TAB (FP) PO SCH ×2 (08:00→11:40)
[2023-03-17] MEDS: CEFTRIAXONE 2 GM in DEXTROSE 5%-WATER 100 ML IVPB SCH (11:39)
[2023-03-17] MEDS: VITAMIN B COMP W-C 1 EA TABLET (NEPHRO-VITE) PO SCH (11:40)
[2023-03-17] MEDS: CLOPIDOGREL BISULFATE 75 MG TABLET (FP) PO SCH (11:40)
[2023-03-17] MEDS: SODIUM ZIRCONIUM CYCLOSILICATE (LOKELMA) 5 GM PACKET PO SCH (11:40)
[2023-03-17] MEDS: MINERAL OIL/PET HY-PHL TOPICAL OINTMENT 454 GM JAR TP SCH (11:40)
[2023-03-17] MEDS: FAMOTIDINE 10 MG TABLET PO SCH (11:40)
[2023-03-17] MEDS: APIXABAN 2.5 MG TABLET PO SCH (11:41)
[2023-03-17] MEDS ORDERED: SODIUM CHLORIDE 250 ML IV PRN (12:00)
[2023-03-17 14:40] VITALS: BP 143/62; TEMP 97.5
== END 2023-03-17 18:35 | DRG 252 ==
LOC: JER 17:41 → JERBED 23:15 → J6S 03-02 01:33
PROVIDERS: ADMIT Internal Medicine; ATTEND Internal Medicine
PROC: 5A1D70Z Performance of Urinary Filtration, Intermittent, Less than 6 Hours Per Day (ICD-10-PCS; 2023-03-02)
PROC: B41DYZZ Fluoroscopy of Aorta and Bilateral Lower Extremity Arteries using Other Contrast (ICD-10-PCS; 2023-03-03)
PROC: 3E1M39Z Irrigation of Peritoneal Cavity using Dialysate, Percutaneous Approach (ICD-10-PCS; 2023-03-03)
PROC: 047T3ZZ Dilation of Right Peroneal Artery, Percutaneous Approach (ICD-10-PCS; principal; 2023-03-03 12:00)
PROC: 0Y6R0Z0 Detachment at Right 2nd Toe, Complete, Open Approach (ICD-10-PCS; 2023-03-08)
PROC: 0KBV0ZZ Excision of Right Foot Muscle, Open Approach (ICD-10-PCS; 2023-03-08)
PROC: 0JH63XZ Insertion of Tunneled Vascular Access Device into Chest Subcutaneous Tissue and Fascia, Percutaneous Approach (ICD-10-PCS; 2023-03-17)
DX: E11.52 Type 2 diabetes mellitus with diabetic peripheral angiopathy with gangrene (principal); N18.6 End stage renal disease; I12.0 Hypertensive chronic kidney disease with stage 5 chronic kidney disease or end stage renal disease; I96 Gangrene, not elsewhere classified; L97.419 Non-pressure chronic ulcer of right heel and midfoot with unspecified severity; M86.9 Osteomyelitis, unspecified; E11.65 Type 2 diabetes mellitus with hyperglycemia; I48.0 Paroxysmal atrial fibrillation; I25.10 Atherosclerotic heart disease of native coronary artery without angina pectoris; E78.5 Hyperlipidemia, unspecified; F17.210 Nicotine dependence, cigarettes, uncomplicated; D64.9 Anemia, unspecified; E83.39 Other disorders of phosphorus metabolism; Z95.5 Presence of coronary angioplasty implant and graft; D63.1 Anemia in chronic kidney disease
CPT/HCPCS: 36415; 36558; 71045-TC-FY; 73610-TC-RT-FY; 73630-TC-RT-FY; 73701-TC-RT; 76000-TC-FY; 80048; 80053; 82550; 82607; 82728; 82746; 82962; 83036; 83540; 83550; 83735; 84100; 84484; 85025; 85027; 85045; 85610; 85651; 85730; 86140; 86803; 86850; 86900; 86901; 87040; 87070; 87077; 87081; 87186; 87205; 87340; 87517; 87635; 88305-TC; 88311-TC; 93005; 93010; 94760; 97116-GP; 97162-GP; 99285-25; C1760; C1769; C9803-CS; J1644; U0003; U0005

== ENCOUNTER 2023-03-30 12:35 | Observation (INO) | payer OTHER ==
[2023-03-30 14:23] LABS: BASO % 3.7 % (0-2.0); EOS % 3.8 % (0-4.5); HEMATOCRIT 28.5 % (32.4-45.2); LYMPH % 21.2 % (8-40); MCH 30.8 pg (25.7-33.7); MCHC 31.6 g/dl (32.0-36.0); MEAN CELL VOLUME 97.6 fl (80-96); MEAN PLT VOLUME 8.9 fl (7.5-11.1); MONO % 9.9 % (3.8-10.2); NEUT % 61.4 % (42.8-82.8); PLATELET COUNT 241 10^3/uL (134-434); RBC 2.92 M/mm3 (3.60-5.2); RDW 16.9 % (11.6-15.6); WHITE BLOOD COUNT 6.3 K/mm3 (4.0-10.0)
[2023-03-30 14:25] LABS: VENOUS BASE EXCESS 0.8 mmol/L (-2-2); VENOUS O2 SATURATION 43.6 % (70-80); VENOUS PCO2 53.1 mmHg (38-52); VENOUS PH 7.329 (7.310-7.410)
[2023-03-30 14:31] LABS: INR 1.34 (0.83-1.09); PROTHROMBIN TIME (PATIENT) 15.5 SEC (9.7-13.0)
[2023-03-30 14:34] LABS: ACTIVATED PTT 33.1 SECONDS (25.2-36.5)
[2023-03-30 14:46] LABS: CHLORIDE 99 mmol/L (98-107); POTASSIUM 3.9 mmol/L (3.5-5.1); SODIUM 140 mmol/L (136-145)
[2023-03-30 14:49] LABS: ALBUMIN 1.8 g/dl (3.4-5.0); ANION GAP 13 MMOL/L (8-16); BLOOD UREA NITROGEN 82.2 mg/dL (7-18); CALCIUM 9.2 mg/dL (8.5-10.1); CO2 28 mmol/L (21-32); GLUCOSE,RANDOM 82 mg/dL (74-106); MAGNESIUM 2.4 mg/dL (1.8-2.4)
[2023-03-30 14:51] LABS: PHOSPHOROUS 8.2 mg/dL (2.5-4.9); SGPT/ALT 49 U/L (13-61)
[2023-03-30 14:53] LABS: BILIRUBIN,TOTAL 0.3 mg/dL (0.2-1); TOT PROT 6.2 g/dl (6.4-8.2)
[2023-03-30 14:54] LABS: ALK PHOS 147 U/L (45-117)
[2023-03-30 14:59] LABS: SGOT/AST 54 U/L (15-37)
[2023-03-30] MEDS ORDERED: CEFTRIAXONE 2 GM in DEXTROSE 5%-WATER - 100 ML IVPB ONE (16:21)
[2023-03-30] MEDS ORDERED: CEFTRIAXONE 2 GM/100 ML BAG IVPB ONE (16:24)
[2023-03-30] MEDS: INSULIN SLIDING SCALE (NOVOLOG) 1 VIAL SQ SCH (21:45)
[2023-03-30] MEDS: APIXABAN 2.5 MG TABLET PO SCH (21:46)
[2023-03-30] MEDS: ATORVASTATIN CA 80 MG TABLET (FP) PO SCH (21:46)
[2023-03-30] MEDS: AMIODARONE HCL 200 MG TABLET PO SCH (21:46)
[2023-03-30] MEDS ORDERED: AMIODARONE HCL 200 MG PO SCH (22:00)
[2023-03-30] MEDS ORDERED: ACETAMINOPHEN 1000 MG/100 ML BAG IVPB ONE (23:53)
[2023-03-31] MEDS ORDERED: ACETAMINOPHEN 1000 MG/100 ML BAG IVPB PRN (02:44)
[2023-03-31] MEDS: INSULIN SLIDING SCALE (NOVOLOG) 1 VIAL SQ SCH ×4 (06:46→21:55)
[2023-03-31 07:27] LABS: BASO % 1.4 % (0-2.0); EOS % 4.2 % (0-4.5); HEMOGLOBIN 8.1 GM/dL (10.7-15.3); LYMPH % 21.4 % (8-40); MCH 31.3 pg (25.7-33.7); MCHC 32.6 g/dl (32.0-36.0); MEAN PLT VOLUME 8.3 fl (7.5-11.1); MONO % 9.3 % (3.8-10.2); NEUT % 63.7 % (42.8-82.8); PLATELET COUNT 196 10^3/uL (134-434); RDW 16.8 % (11.6-15.6); WHITE BLOOD COUNT 5.7 K/mm3 (4.0-10.0)
[2023-03-31 07:50] LABS: SODIUM 142 mmol/L (136-145)
[2023-03-31 07:51] LABS: CHLORIDE 101 mmol/L (98-107); POTASSIUM 4.1 mmol/L (3.5-5.1)
[2023-03-31 08:01] LABS: ALBUMIN 1.6 g/dl (3.4-5.0); CALCIUM 8.7 mg/dL (8.5-10.1)
[2023-03-31 08:02] LABS: ALK PHOS 136 U/L (45-117); ANION GAP 14 MMOL/L (8-16); BLOOD UREA NITROGEN 88.8 mg/dL (7-18); CO2 28 mmol/L (21-32); GLUCOSE,RANDOM 133 mg/dL (74-106); MAGNESIUM 2.3 mg/dL (1.8-2.4); SGOT/AST 51 U/L (15-37)
[2023-03-31 08:03] LABS: BILIRUBIN,TOTAL 0.4 mg/dL (0.2-1); TOT PROT 5.5 g/dl (6.4-8.2)
[2023-03-31 08:04] LABS: SGPT/ALT 57 U/L (13-61)
[2023-03-31 08:06] LABS: CREATININE 10.9 mg/dL (0.55-1.3)
[2023-03-31 08:51] LABS: PHOSPHOROUS 10.2 mg/dL (2.5-4.9)
[2023-03-31] MEDS ORDERED: PANTOPRAZOLE 40 MG TABLET PO SCH (10:00)
[2023-03-31] MEDS ORDERED: MULTIVITAMIN PO SCH (10:00)
[2023-03-31] MEDS: MULTIVITAMINS (DAILY MVI) TABLET (FP) PO SCH (10:03)
[2023-03-31] MEDS: CEFTRIAXONE 2 GM in DEXTROSE 5%-WATER 100 ML IVPB SCH (10:03)
[2023-03-31] MEDS: APIXABAN 2.5 MG TABLET PO SCH ×2 (10:03→21:55)
[2023-03-31] MEDS: CLOPIDOGREL BISULFATE 75 MG TABLET (FP) PO SCH (10:03)
[2023-03-31] MEDS: SEVELAMER CARBONATE 800 MG TAB (FP) PO SCH (17:02)
[2023-03-31] MEDS: ATORVASTATIN CA 80 MG TABLET (FP) PO SCH (21:55)
[2023-03-31] MEDS: AMIODARONE HCL 200 MG TABLET PO SCH (21:55)
[2023-04-01] MEDS: INSULIN SLIDING SCALE (NOVOLOG) 1 VIAL SQ SCH ×4 (06:09→21:05)
[2023-04-01 06:39] LABS: BASO % 2.6 % (0-2.0); EOS % 4.6 % (0-4.5); HEMATOCRIT 27.5 % (32.4-45.2); HEMOGLOBIN 8.7 GM/dL (10.7-15.3); MCH 30.9 pg (25.7-33.7); MCHC 31.7 g/dl (32.0-36.0); MEAN CELL VOLUME 97.5 fl (80-96); MONO % 9.9 % (3.8-10.2); NEUT % 60.9 % (42.8-82.8); PLATELET COUNT 201 10^3/uL (134-434); RBC 2.82 M/mm3 (3.60-5.2)
[2023-04-01 07:04] LABS: CHLORIDE 98 mmol/L (98-107); POTASSIUM 4.6 mmol/L (3.5-5.1); SODIUM 138 mmol/L (136-145)
[2023-04-01 07:05] LABS: CALCIUM 8.7 mg/dL (8.5-10.1)
[2023-04-01 07:06] LABS: ALBUMIN 1.7 g/dl (3.4-5.0); ANION GAP 15 MMOL/L (8-16); BLOOD UREA NITROGEN 98.8 mg/dL (7-18); CO2 26 mmol/L (21-32); GLUCOSE,RANDOM 168 mg/dL (74-106); MAGNESIUM 2.4 mg/dL (1.8-2.4)
[2023-04-01 07:09] LABS: SGOT/AST 28 U/L (15-37); SGPT/ALT 42 U/L (13-61)
[2023-04-01 07:11] LABS: BILIRUBIN,TOTAL 0.7 mg/dL (0.2-1); TOT PROT 5.6 g/dl (6.4-8.2)
[2023-04-01 07:13] LABS: ALK PHOS 141 U/L (45-117)
[2023-04-01] MEDS: FAMOTIDINE 10 MG TABLET PO SCH (10:14)
[2023-04-01] MEDS: APIXABAN 2.5 MG TABLET PO SCH ×2 (10:14→21:04)
[2023-04-01] MEDS: CLOPIDOGREL BISULFATE 75 MG TABLET (FP) PO SCH (10:14)
[2023-04-01] MEDS: MULTIVITAMINS (DAILY MVI) TABLET (FP) PO SCH (10:14)
[2023-04-01] MEDS: SEVELAMER CARBONATE 800 MG TAB (FP) PO SCH ×3 (10:14→17:21)
[2023-04-01] MEDS: CEFTRIAXONE 2 GM in DEXTROSE 5%-WATER 100 ML IVPB SCH (10:14)
[2023-04-01] MEDS ORDERED: SODIUM ZIRCONIUM CYCLOSILICATE (LOKELMA) 5 GM PACKET PO SCH (14:15)
[2023-04-01] MEDS ORDERED: LORazepam 0.5 MG TABLET PO ONE (20:23)
[2023-04-01] MEDS: ATORVASTATIN CA 80 MG TABLET (FP) PO SCH (21:04)
[2023-04-01] MEDS: AMIODARONE HCL 200 MG TABLET PO SCH (21:04)
[2023-04-02] MEDS: INSULIN SLIDING SCALE (NOVOLOG) 1 VIAL SQ SCH ×4 (06:42→23:00)
[2023-04-02 07:29] LABS: CHLORIDE 98 mmol/L (98-107); POTASSIUM 5.2 mmol/L (3.5-5.1); SODIUM 138 mmol/L (136-145)
[2023-04-02 07:31] LABS: CALCIUM 8.9 mg/dL (8.5-10.1); GLUCOSE,RANDOM 268 mg/dL (74-106)
[2023-04-02 07:32] LABS: ALBUMIN 1.7 g/dl (3.4-5.0); ANION GAP 18 MMOL/L (8-16); CO2 22 mmol/L (21-32); MAGNESIUM 2.6 mg/dL (1.8-2.4)
[2023-04-02 07:34] LABS: SGPT/ALT 34 U/L (13-61)
[2023-04-02 07:36] LABS: BILIRUBIN,TOTAL 0.4 mg/dL (0.2-1); SGOT/AST 26 U/L (15-37)
[2023-04-02 07:37] LABS: ALK PHOS 148 U/L (45-117)
[2023-04-02 07:52] LABS: BLOOD UREA NITROGEN 106.4 mg/dL (7-18); CREATININE 13.1 mg/dL (0.55-1.3)
[2023-04-02] MEDS: SEVELAMER CARBONATE 800 MG TAB (FP) PO SCH ×3 (08:37→17:41)
[2023-04-02] MEDS ORDERED: SODIUM ZIRCONIUM CYCLOSILICATE (LOKELMA) 5 GM PACKET PO SCH (10:00)
[2023-04-02] MEDS: LIDOCAINE 5% TOPICAL PATCH TP SCH (10:14)
[2023-04-02] MEDS: APIXABAN 2.5 MG TABLET PO SCH ×2 (10:18→23:00)
[2023-04-02] MEDS: CLOPIDOGREL BISULFATE 75 MG TABLET (FP) PO SCH (10:18)
[2023-04-02] MEDS: FAMOTIDINE 10 MG TABLET PO SCH (10:18)
[2023-04-02] MEDS: MULTIVITAMINS (DAILY MVI) TABLET (FP) PO SCH (10:18)
[2023-04-02] MEDS: CEFTRIAXONE 2 GM in DEXTROSE 5%-WATER 100 ML IVPB SCH (10:19)
[2023-04-02 13:01] LABS: BASO % 0.6 % (0-2.0); EOS % 2.6 % (0-4.5); HEMATOCRIT 23.5 % (32.4-45.2); HEMOGLOBIN 7.6 GM/dL (10.7-15.3); LYMPH % 12.9 % (8-40); MCH 30.8 pg (25.7-33.7); MCHC 32.4 g/dl (32.0-36.0); MEAN CELL VOLUME 95.2 fl (80-96); MEAN PLT VOLUME 8.5 fl (7.5-11.1); MONO % 6.2 % (3.8-10.2); NEUT % 77.7 % (42.8-82.8); PLATELET COUNT 176 10^3/uL (134-434); RBC 2.47 M/mm3 (3.60-5.2); WHITE BLOOD COUNT 6.5 K/mm3 (4.0-10.0)
[2023-04-02 14:40] LABS: CHLORIDE 95 mmol/L (98-107); SODIUM 136 mmol/L (136-145)
[2023-04-02 14:42] LABS: CALCIUM 8.9 mg/dL (8.5-10.1)
[2023-04-02 14:43] LABS: ALBUMIN 1.7 g/dl (3.4-5.0); ANION GAP 17 MMOL/L (8-16); CO2 24 mmol/L (21-32); GLUCOSE,RANDOM 329 mg/dL (74-106); MAGNESIUM 2.6 mg/dL (1.8-2.4)
[2023-04-02 14:46] LABS: SGOT/AST 14 U/L (15-37); SGPT/ALT 32 U/L (13-61)
[2023-04-02 14:47] LABS: BILIRUBIN,TOTAL 0.4 mg/dL (0.2-1); TOT PROT 5.9 g/dl (6.4-8.2)
[2023-04-02 14:48] LABS: ALK PHOS 142 U/L (45-117)
[2023-04-02 15:24] LABS: CREATININE 13.3 mg/dL (0.55-1.3)
[2023-04-02 15:31] LABS: PHOSPHOROUS < 9.0 mg/dL (2.5-4.9)
[2023-04-02] MEDS ORDERED: SODIUM CHLORIDE 250 ML IV PRN (15:44)
[2023-04-02] MEDS: ATORVASTATIN CA 80 MG TABLET (FP) PO SCH (23:00)
[2023-04-02] MEDS: AMIODARONE HCL 200 MG TABLET PO SCH (23:00)
[2023-04-02] MEDS: LIDOCAINE PATCH REMOVAL MC SCH (23:00)
[2023-04-03] MEDS: INSULIN SLIDING SCALE (NOVOLOG) 1 VIAL SQ SCH ×4 (06:39→22:32)
[2023-04-03 07:31] LABS: CHLORIDE 101 mmol/L (98-107); POTASSIUM 3.9 mmol/L (3.5-5.1); SODIUM 141 mmol/L (136-145)
[2023-04-03 07:36] LABS: CALCIUM 8.7 mg/dL (8.5-10.1)
[2023-04-03 07:37] LABS: ALBUMIN 1.5 g/dl (3.4-5.0); ANION GAP 12 MMOL/L (8-16); CO2 28 mmol/L (21-32); GLUCOSE,RANDOM 170 mg/dL (74-106); MAGNESIUM 2.3 mg/dL (1.8-2.4)
[2023-04-03 07:38] LABS: SGPT/ALT 26 U/L (13-61)
[2023-04-03 07:40] LABS: BILIRUBIN,TOTAL 0.4 mg/dL (0.2-1); SGOT/AST 18 U/L (15-37); TOT PROT 5.4 g/dl (6.4-8.2)
[2023-04-03 07:41] LABS: ALK PHOS 130 U/L (45-117)
[2023-04-03 07:48] LABS: EOS % 2.6 % (0-4.5); HEMATOCRIT 22.2 % (32.4-45.2); HEMOGLOBIN 7.3 GM/dL (10.7-15.3); LYMPH % 14.3 % (8-40); MCH 31.7 pg (25.7-33.7); MCHC 32.8 g/dl (32.0-36.0); MEAN CELL VOLUME 96.7 fl (80-96); MEAN PLT VOLUME 8.7 fl (7.5-11.1); MONO % 8.9 % (3.8-10.2); NEUT % 72.2 % (42.8-82.8); PLATELET COUNT 170 10^3/uL (134-434); RDW 16.9 % (11.6-15.6); WHITE BLOOD COUNT 6.5 K/mm3 (4.0-10.0)
[2023-04-03] MEDS ORDERED: oxyCODONE HCL 5 MG TABLET PO PRN (08:19)
[2023-04-03] MEDS: SODIUM ZIRCONIUM CYCLOSILICATE (LOKELMA) 5 GM PACKET PO SCH (08:33)
[2023-04-03] MEDS: SEVELAMER CARBONATE 800 MG TAB (FP) PO SCH ×3 (08:33→17:33)
[2023-04-03] MEDS: oxyCODONE HCL 5 MG TABLET PO PRN (08:34)
[2023-04-03] MEDS: LIDOCAINE 5% TOPICAL PATCH TP SCH (10:17)
[2023-04-03] MEDS: CLOPIDOGREL BISULFATE 75 MG TABLET (FP) PO SCH (10:18)
[2023-04-03] MEDS: CEFTRIAXONE 2 GM in DEXTROSE 5%-WATER 100 ML IVPB SCH (10:18)
[2023-04-03] MEDS: FAMOTIDINE 10 MG TABLET PO SCH (10:18)
[2023-04-03] MEDS: MULTIVITAMINS (DAILY MVI) TABLET (FP) PO SCH (10:18)
[2023-04-03] MEDS: APIXABAN 2.5 MG TABLET PO SCH ×2 (10:25→22:34)
[2023-04-03] MEDS: ATORVASTATIN CA 80 MG TABLET (FP) PO SCH (22:34)
[2023-04-03] MEDS: LIDOCAINE PATCH REMOVAL MC SCH (22:34)
[2023-04-03] MEDS: AMIODARONE HCL 200 MG TABLET PO SCH (22:34)
[2023-04-03] MEDS: DOCUSATE SODIUM 100 MG CAPSULE (FP) PO SCH (22:34)
[2023-04-04] MEDS: INSULIN SLIDING SCALE (NOVOLOG) 1 VIAL SQ SCH ×4 (07:45→22:16)
[2023-04-04 09:03] LABS: EOS % 3.8 % (0-4.5); HEMATOCRIT 22.3 % (32.4-45.2); HEMOGLOBIN 7.2 GM/dL (10.7-15.3); LYMPH % 16.5 % (8-40); MCH 31.3 pg (25.7-33.7); MCHC 32.3 g/dl (32.0-36.0); MEAN CELL VOLUME 96.8 fl (80-96); MEAN PLT VOLUME 8.8 fl (7.5-11.1); MONO % 9.4 % (3.8-10.2); NEUT % 68.3 % (42.8-82.8); PLATELET COUNT 164 10^3/uL (134-434); RBC 2.31 M/mm3 (3.60-5.2); RDW 16.5 % (11.6-15.6); WHITE BLOOD COUNT 5.6 K/mm3 (4.0-10.0)
[2023-04-04 09:16] LABS: CHLORIDE 99 mmol/L (98-107); POTASSIUM 4.2 mmol/L (3.5-5.1); SODIUM 141 mmol/L (136-145)
[2023-04-04 09:20] LABS: ALBUMIN 1.6 g/dl (3.4-5.0)
[2023-04-04 09:21] LABS: BLOOD UREA NITROGEN 75.4 mg/dL (7-18); GLUCOSE,RANDOM 114 mg/dL (74-106); MAGNESIUM 2.5 mg/dL (1.8-2.4)
[2023-04-04] MEDS: SODIUM ZIRCONIUM CYCLOSILICATE (LOKELMA) 5 GM PACKET PO SCH (09:21)
[2023-04-04] MEDS: SEVELAMER CARBONATE 800 MG TAB (FP) PO SCH ×3 (09:22→17:54)
[2023-04-04 09:23] LABS: SGPT/ALT 21 U/L (13-61)
[2023-04-04 09:24] LABS: ANION GAP 13 MMOL/L (8-16); CO2 29 mmol/L (21-32)
[2023-04-04 09:25] LABS: BILIRUBIN,TOTAL 0.5 mg/dL (0.2-1); TOT PROT 5.4 g/dl (6.4-8.2)
[2023-04-04 09:26] LABS: ALK PHOS 124 U/L (45-117)
[2023-04-04 09:27] LABS: SGOT/AST 14 U/L (15-37)
[2023-04-04 09:51] LABS: CREATININE 10.4 mg/dL (0.55-1.3)
[2023-04-04] MEDS: FAMOTIDINE 10 MG TABLET PO SCH ×2 (10:35→13:31)
[2023-04-04] MEDS: CEFTRIAXONE 2 GM in DEXTROSE 5%-WATER 100 ML IVPB SCH ×2 (10:36→13:31)
[2023-04-04] MEDS: MULTIVITAMINS (DAILY MVI) TABLET (FP) PO SCH ×2 (10:36→13:31)
[2023-04-04] MEDS: CLOPIDOGREL BISULFATE 75 MG TABLET (FP) PO SCH ×2 (10:36→13:31)
[2023-04-04] MEDS: APIXABAN 2.5 MG TABLET PO SCH ×3 (10:36→22:14)
[2023-04-04 10:42] LABS: PHOSPHOROUS 8.5 mg/dL (2.5-4.9)
[2023-04-04] MEDS ORDERED: INSULIN (NOVOLOG) ASPART 100 UNITS/ML 10ML VIAL ONE ×2 (11:13→21:09)
[2023-04-04] MEDS: ACETAMINOPHEN 325 MG TABLET (FP) PO PRN ×2 (11:17→17:59)
[2023-04-04] MEDS: LIDOCAINE 5% TOPICAL PATCH TP SCH (11:17)
[2023-04-04] MEDS: DOCUSATE SODIUM 100 MG CAPSULE (FP) PO SCH (22:14)
[2023-04-04] MEDS: LIDOCAINE PATCH REMOVAL MC SCH (22:15)
[2023-04-04] MEDS: AMIODARONE HCL 200 MG TABLET PO SCH (22:15)
[2023-04-04] MEDS: ATORVASTATIN CA 80 MG TABLET (FP) PO SCH (22:15)
[2023-04-04] MEDS: oxyCODONE HCL 5 MG TABLET PO PRN (22:15)
[2023-04-05] MEDS ORDERED: INSULIN (NOVOLOG) ASPART 100 UNITS/ML 10ML VIAL ONE (06:28)
[2023-04-05] MEDS: INSULIN (LEVEMIR) 100 UNITS/ML UNITS SQ SCH (06:33)
[2023-04-05] MEDS: INSULIN SLIDING SCALE (NOVOLOG) 1 VIAL SQ SCH ×4 (06:34→21:44)
[2023-04-05 07:40] LABS: BASO % 1.8 % (0-2.0); HEMATOCRIT 23.2 % (32.4-45.2); HEMOGLOBIN 7.4 GM/dL (10.7-15.3); LYMPH % 17.8 % (8-40); MCH 30.3 pg (25.7-33.7); MCHC 31.7 g/dl (32.0-36.0); MEAN CELL VOLUME 95.6 fl (80-96); MEAN PLT VOLUME 8.5 fl (7.5-11.1); MONO % 9.1 % (3.8-10.2); NEUT % 66.3 % (42.8-82.8); PLATELET COUNT 161 10^3/uL (134-434); RBC 2.43 M/mm3 (3.60-5.2); WHITE BLOOD COUNT 5.5 K/mm3 (4.0-10.0)
[2023-04-05 08:03] LABS: CHLORIDE 95 mmol/L (98-107); POTASSIUM 4.3 mmol/L (3.5-5.1); SODIUM 136 mmol/L (136-145)
[2023-04-05 08:06] LABS: ALBUMIN 1.5 g/dl (3.4-5.0); ANION GAP 13 MMOL/L (8-16); BLOOD UREA NITROGEN 90.5 mg/dL (7-18); CO2 29 mmol/L (21-32); GLUCOSE,RANDOM 188 mg/dL (74-106); MAGNESIUM 2.6 mg/dL (1.8-2.4)
[2023-04-05 08:09] LABS: SGOT/AST 13 U/L (15-37); SGPT/ALT 19 U/L (13-61)
[2023-04-05 08:11] LABS: BILIRUBIN,TOTAL 0.7 mg/dL (0.2-1); TOT PROT 5.4 g/dl (6.4-8.2)
[2023-04-05 08:12] LABS: ALK PHOS 122 U/L (45-117)
[2023-04-05 08:19] LABS: CREATININE 11.7 mg/dL (0.55-1.3)
[2023-04-05] MEDS: SEVELAMER CARBONATE 800 MG TAB (FP) PO SCH ×3 (08:39→17:19)
[2023-04-05] MEDS: SODIUM ZIRCONIUM CYCLOSILICATE (LOKELMA) 5 GM PACKET PO SCH ×2 (08:53→12:45)
[2023-04-05] MEDS: CLOPIDOGREL BISULFATE 75 MG TABLET (FP) PO SCH ×2 (09:45→12:43)
[2023-04-05] MEDS: APIXABAN 2.5 MG TABLET PO SCH ×3 (09:45→21:43)
[2023-04-05] MEDS: CEFTRIAXONE 2 GM in DEXTROSE 5%-WATER 100 ML IVPB SCH ×2 (09:45→12:44)
[2023-04-05] MEDS: MULTIVITAMINS (DAILY MVI) TABLET (FP) PO SCH ×2 (09:45→12:43)
[2023-04-05] MEDS: FAMOTIDINE 10 MG TABLET PO SCH ×2 (09:45→12:44)
[2023-04-05] MEDS: LIDOCAINE 5% TOPICAL PATCH TP SCH ×2 (09:45→12:44)
[2023-04-05] MEDS ORDERED: EPOETIN ALFA-EPBX 4,000 UNIT/ML VIAL SQ ONE (10:00)
[2023-04-05] MEDS ORDERED: SODIUM CHLORIDE 250 ML IV PRN (10:00)
[2023-04-05 18:06] VITALS: RESP 20
[2023-04-05] MEDS: ATORVASTATIN CA 80 MG TABLET (FP) PO SCH (21:43)
[2023-04-05] MEDS: DOCUSATE SODIUM 100 MG CAPSULE (FP) PO SCH (21:43)
[2023-04-05] MEDS: AMIODARONE HCL 200 MG TABLET PO SCH (21:44)
[2023-04-05] MEDS: LIDOCAINE PATCH REMOVAL MC SCH (22:04)
[2023-04-06] MEDS ORDERED: INSULIN (NOVOLOG) ASPART 100 UNITS/ML 10ML VIAL ONE ×2 (05:59→12:24)
[2023-04-06] MEDS: INSULIN (LEVEMIR) 100 UNITS/ML UNITS SQ SCH (06:10)
[2023-04-06] MEDS: INSULIN SLIDING SCALE (NOVOLOG) 1 VIAL SQ SCH ×2 (06:11→12:29)
[2023-04-06 07:20] VITALS: TEMP 98
[2023-04-06 09:08] LABS: BASO % 1.8 % (0-2.0); EOS % 3.3 % (0-4.5); HEMATOCRIT 23.2 % (32.4-45.2); HEMOGLOBIN 7.4 GM/dL (10.7-15.3); LYMPH % 16.5 % (8-40); MCH 31.5 pg (25.7-33.7); MCHC 32.1 g/dl (32.0-36.0); MEAN CELL VOLUME 98.1 fl (80-96); MEAN PLT VOLUME 8.7 fl (7.5-11.1); MONO % 11.3 % (3.8-10.2); NEUT % 67.1 % (42.8-82.8); PLATELET COUNT 161 10^3/uL (134-434); RBC 2.36 M/mm3 (3.60-5.2); RDW 17.9 % (11.6-15.6); WHITE BLOOD COUNT 5.8 K/mm3 (4.0-10.0)
[2023-04-06 09:30] LABS: POTASSIUM 3.9 mmol/L (3.5-5.1)
[2023-04-06 09:32] LABS: CALCIUM 9.1 mg/dL (8.5-10.1)
[2023-04-06 09:33] LABS: ALBUMIN 1.6 g/dl (3.4-5.0); MAGNESIUM 2.4 mg/dL (1.8-2.4)
[2023-04-06 09:36] LABS: CREATININE 7.2 mg/dL (0.55-1.3)
[2023-04-06 09:38] LABS: BILIRUBIN,TOTAL 0.4 mg/dL (0.2-1); TOT PROT 5.5 g/dl (6.4-8.2)
[2023-04-06] MEDS: SEVELAMER CARBONATE 800 MG TAB (FP) PO SCH ×2 (09:41→12:29)
[2023-04-06] MEDS: MULTIVITAMINS (DAILY MVI) TABLET (FP) PO SCH (09:42)
[2023-04-06] MEDS: CLOPIDOGREL BISULFATE 75 MG TABLET (FP) PO SCH (09:42)
[2023-04-06] MEDS: FAMOTIDINE 10 MG TABLET PO SCH (09:42)
[2023-04-06] MEDS: APIXABAN 2.5 MG TABLET PO SCH (09:42)
[2023-04-06] MEDS: LIDOCAINE 5% TOPICAL PATCH TP SCH (09:43)
[2023-04-06] MEDS: CEFTRIAXONE 2 GM in DEXTROSE 5%-WATER 100 ML IVPB SCH (09:43)
[2023-04-06] MEDS: SODIUM ZIRCONIUM CYCLOSILICATE (LOKELMA) 5 GM PACKET PO SCH (09:49)
[2023-04-06] MEDS ORDERED: SODIUM ZIRCONIUM CYCLOSILICATE (LOKELMA) 10 GM PACKET PO SCH (10:48)
[2023-04-06] MEDS: ACETAMINOPHEN 325 MG TABLET (FP) PO PRN (14:52)
[2023-04-06 15:32] VITALS: BP 152/61; PULSE 65
[2023-04-06 15:52] VITALS: BMI 20.6
== END 2023-04-06 16:36 | disposition home health service (06) ==
LOC: JER 12:35 → INTOOBSV 14:25 → UNDOADMOB 14:25 → JERBED 14:25 → J5S 19:48 → J4S 03-31 01:24 → J8W 04-03 16:37
PROVIDERS: ADMIT Internal Medicine; ATTEND Nurse Practitioner Family
PROC: 3E03329 Introduction of Other Anti-infective into Peripheral Vein, Percutaneous Approach (ICD-10-PCS; principal; 2023-03-30)
PROC: 3E023GC Introduction of Other Therapeutic Substance into Muscle, Percutaneous Approach (ICD-10-PCS; 2023-03-30)
PROC: 3E013VG Introduction of Insulin into Subcutaneous Tissue, Percutaneous Approach (ICD-10-PCS; 2023-03-30)
PROC: 3E033NZ Introduction of Analgesics, Hypnotics, Sedatives into Peripheral Vein, Percutaneous Approach (ICD-10-PCS; 2023-03-30)
DX: E11.22 Type 2 diabetes mellitus with diabetic chronic kidney disease (principal); E11.65 Type 2 diabetes mellitus with hyperglycemia; I25.10 Atherosclerotic heart disease of native coronary artery without angina pectoris; I73.9 Peripheral vascular disease, unspecified; M86.9 Osteomyelitis, unspecified; E78.5 Hyperlipidemia, unspecified; N18.6 End stage renal disease; Z99.2 Dependence on renal dialysis; I48.91 Unspecified atrial fibrillation; I25.2 Old myocardial infarction; Z95.0 Presence of cardiac pacemaker; R00.1 Bradycardia, unspecified
CPT/HCPCS: 36415; 71045-TC-FY; 73610-TC-RT-FY; 73630-TC-RT-FY; 80053; 82010; 82803; 82962; 83036; 83735; 84100; 84484; 85025; 85610; 85730; 86140; 86705; 86708; 86803; 87040; 87340; 87635; 93005; 93010; 96365; 96372; 96375; 97116-GP; 97161-GP; 99285-25; G0378; Q5106

== ENCOUNTER 2023-04-07 13:39 | Day surgery (SDC) | payer OTHER ==
[2023-04-07] MEDS ORDERED: CEFTRIAXONE 2 GM in SODIUM CHLORIDE 100 ML IVPB ONE (14:15)
[2023-04-07 14:37] VITALS: BP 151/62; PULSE 64; TEMP 98.1
[2023-04-07 15:05] VITALS: RESP 18
== END 2023-04-07 15:05 | disposition home or self-care (01) ==
LOC: FINFUSION 13:39 → FM/S 13:40 → FINFUSION 15:05
PROVIDERS: ATTEND Internal Medicine Infectious Disease
DX: M86.8X7 Other osteomyelitis, ankle and foot (principal)
CPT/HCPCS: 96365

== ENCOUNTER 2023-04-08 15:43 | Day surgery (SDC) | payer OTHER ==
[2023-04-08] MEDS ORDERED: CEFTRIAXONE 2 GM in SODIUM CHLORIDE 100 ML IVPB ONE (16:00)
[2023-04-08 16:49] VITALS: BP 135/52; PULSE 66; RESP 18; TEMP 97.8
== END 2023-04-08 16:49 | disposition home or self-care (01) ==
LOC: FM/S 15:43 → FINFUSION 15:43
PROVIDERS: ATTEND Internal Medicine Infectious Disease
DX: M86.8X7 Other osteomyelitis, ankle and foot (principal)
CPT/HCPCS: 96365

== ENCOUNTER 2023-04-09 15:21 | Day surgery (SDC) | payer OTHER ==
[~2023-04-09 15:21] MED LIST: CEFTRIAXONE 2 GM in SODIUM CHLORIDE 100 ML IVPB ONE
[2023-04-09 16:23] VITALS: BP 161/67; PULSE 66; RESP 16; TEMP 97.7
== END 2023-04-09 16:23 | disposition home or self-care (01) ==
LOC: FINFUSION 15:21 → FM/S 15:22 → FINFUSION 16:23
PROVIDERS: ATTEND Internal Medicine Infectious Disease
DX: M86.8X7 Other osteomyelitis, ankle and foot (principal)
CPT/HCPCS: 96365

== ENCOUNTER 2023-04-10 15:24 | Day surgery (SDC) | payer OTHER ==
[2023-04-10] MEDS ORDERED: CEFTRIAXONE 2 GM in DEXTROSE 5%-WATER 100 ML IVPB ONE (16:00)
[2023-04-10 16:31] VITALS: BP 161/63; RESP 18; TEMP 97.6
[2023-04-10 16:42] VITALS: PULSE 62
== END 2023-04-10 16:50 | disposition home or self-care (01) ==
LOC: FINFUSION 15:24 → FM/S 15:25 → FINFUSION 16:50
PROVIDERS: ATTEND Internal Medicine Infectious Disease
DX: M86.8X7 Other osteomyelitis, ankle and foot (principal)
CPT/HCPCS: 96365

== ENCOUNTER 2023-04-11 15:42 | Day surgery (SDC) | payer OTHER ==
[2023-04-11 16:41] VITALS: BP 136/67; RESP 18; TEMP 98.1
[2023-04-11 16:48] VITALS: PULSE 72
[2023-04-11] MEDS ORDERED: CEFTRIAXONE 2 GM in SODIUM CHLORIDE 100 ML IVPB ONE (17:00)
== END 2023-04-11 17:00 | disposition home or self-care (01) ==
LOC: FINFUSION 15:42 → FM/S 15:44 → FINFUSION 17:00
PROVIDERS: ATTEND Internal Medicine Infectious Disease
DX: M86.8X7 Other osteomyelitis, ankle and foot (principal)
CPT/HCPCS: 96365

== ENCOUNTER 2023-04-12 14:05 | Day surgery (SDC) | payer OTHER ==
[2023-04-12] MEDS ORDERED: CEFTRIAXONE 2 GM in SODIUM CHLORIDE 100 ML IVPB ONE (14:15)
[2023-04-12 15:14] VITALS: BP 130/52; PULSE 82; RESP 18; TEMP 98.5
== END 2023-04-12 15:25 | disposition home or self-care (01) ==
LOC: FINFUSION 14:05 → FM/S 14:06 → FINFUSION 15:25
PROVIDERS: ATTEND Internal Medicine Infectious Disease
DX: M86.8X7 Other osteomyelitis, ankle and foot (principal)
CPT/HCPCS: 96365

== ENCOUNTER 2023-04-13 16:27 | Day surgery (SDC) | payer OTHER ==
[2023-04-13] MEDS ORDERED: CEFTRIAXONE 2 GM in DEXTROSE 5%-WATER 100 ML IVPB ONE (16:45)
[2023-04-13 17:09] VITALS: BP 102/56; TEMP 98
[2023-04-13 17:35] VITALS: PULSE 64; RESP 17
== END 2023-04-13 17:38 | disposition home or self-care (01) ==
LOC: FM/S 16:27 → FINFUSION 16:27
PROVIDERS: ATTEND Internal Medicine Infectious Disease
DX: M86.8X7 Other osteomyelitis, ankle and foot (principal)
CPT/HCPCS: 96365

== ENCOUNTER 2023-04-15 16:37 | Day surgery (SDC) | payer OTHER ==
[2023-04-15 16:59] VITALS: PULSE 60; TEMP 98.4
[2023-04-15] MEDS ORDERED: CEFTRIAXONE 2 GM in DEXTROSE 5%-WATER 100 ML IVPB ONE (17:15)
[2023-04-15 18:38] VITALS: BP 140/52; RESP 17
== END 2023-04-15 18:38 | disposition home or self-care (01) ==
LOC: FINFUSION 16:37 → FM/S 16:37 → FINFUSION 18:38
PROVIDERS: ATTEND Internal Medicine Infectious Disease
DX: M86.8X7 Other osteomyelitis, ankle and foot (principal)
CPT/HCPCS: 96365

== ENCOUNTER 2023-04-16 16:09 | Day surgery (SDC) | payer OTHER ==
[2023-04-16] MEDS ORDERED: CEFTRIAXONE 2 GM in SODIUM CHLORIDE 100 ML IVPB SCH (16:30)
[2023-04-16 17:50] VITALS: BP 120/45; PULSE 66; RESP 18; TEMP 98.5
== END 2023-04-16 18:00 | disposition home or self-care (01) ==
LOC: FM/S 16:09 → FINFUSION 16:09
PROVIDERS: ATTEND Internal Medicine Infectious Disease
DX: M86.8X7 Other osteomyelitis, ankle and foot (principal)
CPT/HCPCS: 36415; 85651; 86140; 96365

== ENCOUNTER → 2023-05-09 | Day surgery (SDC) | payer OTHER | END | disposition home or self-care (01) | LOC: JRADIR 13:00 | PROVIDERS: ATTEND Internal Medicine Infectious Disease | PROC: 05PY03Z Removal of Infusion Device from Upper Vein, Open Approach (ICD-10-PCS; principal; 2023-05-09) | DX: Z45.2 Encounter for adjustment and management of vascular access device (principal); M86.9 Osteomyelitis, unspecified | CPT/HCPCS: 36589 ==

== ENCOUNTER 2023-07-07 04:56 | Day surgery (SDC) | payer OTHER ==
[2023-06-02 14:24] VITALS: BMI 23.1
[2023-07-07] MEDS ORDERED: ceFAZolin SODIUM 1 GM VIAL IVPB ONE ×2 (11:10→13:10)
[2023-07-07] MEDS ORDERED: LIDOCAINE HCL 1%, 10 MG/ML (20ML VIAL) INF ONE ×2 (11:11)
[2023-07-07] MEDS ORDERED: IOVERSOL 320 MG/ML ML IV ONE ×2 (11:11)
[2023-07-07] MEDS ORDERED: HEPARIN NA (PORCINE) 5,000 UNITS/ML 1ML VIAL SQ ONE (11:13)
[2023-07-07] MEDS ORDERED: MIDAZOLAM HCL 2 MG/2 ML SINGLE DOSE VIAL ONE (11:26)
[2023-07-07] MEDS ORDERED: LACTATED RINGERS SOLUTION 1,000 ML IV SCH (14:15)
[2023-07-07 17:24] VITALS: BP 145/60; PULSE 60; RESP 20; TEMP 97.4
== END 2023-07-07 16:30 | disposition home or self-care (01) ==
LOC: JASU-SURG 04:56
PROVIDERS: ATTEND Surgery Vascular Surgery
PROC: B41DYZZ Fluoroscopy of Aorta and Bilateral Lower Extremity Arteries using Other Contrast (ICD-10-PCS; principal; 2023-07-07 12:00)
DX: E11.621 Type 2 diabetes mellitus with foot ulcer (principal); Z79.84 Long term (current) use of oral hypoglycemic drugs; L97.519 Non-pressure chronic ulcer of other part of right foot with unspecified severity
CPT/HCPCS: 76000-TC-FY; 82962; 94760; C1769; J1644

== ENCOUNTER 2024-03-09 16:55 | Inpatient (IN) | payer OTHER ==
[2024-03-09 17:06] VITALS: BMI 20.1
[2024-03-09] MEDS ORDERED: CEFEPIME 2 GM/100 ML BAG IVPB ONE (19:46)
[2024-03-09 20:00] LABS: BASO % 2.5 % (0-2.0); EOS % 4.8 % (0-4.5); HEMATOCRIT 36.5 % (32.4-45.2); HEMOGLOBIN 11.8 GM/dL (10.7-15.3); LYMPH % 19.8 % (8-40); MCH 29.5 pg (25.7-33.7); MCHC 32.4 g/dl (32.0-36.0); MEAN CELL VOLUME 91.1 fl (80-96); MEAN PLT VOLUME 8.2 fl (7.5-11.1); MONO % 3.5 % (3.8-10.2); NEUT % 69.4 % (42.8-82.8); PLATELET COUNT 222 10^3/uL (134-434); RBC 4.01 M/mm3 (3.60-5.2); RDW 17.3 % (11.6-15.6); WHITE BLOOD COUNT 5.5 K/mm3 (4.0-10.0)
[2024-03-09] MEDS: CEFEPIME HCL 2 GM VIAL (RESTRICTED TO ID) IVPB ONE (20:00)
[2024-03-09 20:18] LABS: CHLORIDE 88 mmol/L (98-107); POTASSIUM 4.6 mmol/L (3.5-5.1); SODIUM 131 mmol/L (136-145)
[2024-03-09 20:21] LABS: CALCIUM 9.4 mg/dL (8.5-10.1)
[2024-03-09 20:22] LABS: ALBUMIN 1.8 g/dl (3.4-5.0); ANION GAP 16 mmol/L (4-13); CO2 27 mmol/L (21-32); GLUCOSE,RANDOM 255 mg/dL (74-106); MAGNESIUM 2.3 mg/dL (1.8-2.4)
[2024-03-09 20:24] LABS: SGPT/ALT 27 U/L (13-61)
[2024-03-09 20:25] LABS: SGOT/AST 40 U/L (15-37)
[2024-03-09 20:26] LABS: BILIRUBIN,TOTAL 0.5 mg/dL (0.2-1); TOT PROT 6.9 g/dl (6.4-8.2)
[2024-03-09 20:27] LABS: ALK PHOS 128 U/L (45-117)
[2024-03-09 20:38] LABS: BLOOD UREA NITROGEN 109.1 mg/dL (7-18); CREATININE 11.1 mg/dL (0.55-1.3)
[2024-03-09 20:44] LABS: ERYTHROCYTE SEDIMENTATION RATE 90 mm/hr (0-30)
[2024-03-09] MEDS ORDERED: ACETAMINOPHEN INJECTION 100 ML IVPB ONE (20:52)
[2024-03-09] MEDS ORDERED: hydrOXYzine HCL 50 MG/ML VIAL IM ONE (21:32)
[2024-03-09] MEDS: hydrOXYzine HCL 100 MG/2 ML VIAL IM ONE (21:37)
[2024-03-09] MEDS ORDERED: VANCOMYCIN 1 GRAM (PRE-DOCKED) 1,000 MG/250 ML BAG IVPB ONE (22:14)
[2024-03-09] MEDS: ACETAMINOPHEN 1000 MG/100 ML BAG IVPB ONE (22:22)
[2024-03-09] MEDS: VANCOMYCIN 1,000 MG in DEXTROSE 5%-WATER - 250 ML IVPB ONE (22:22)
[2024-03-10 00:38] LABS: INR 0.95 (0.83-1.09); PROTHROMBIN TIME (PATIENT) 10.7 SEC (9.7-13.0)
[2024-03-10] MEDS ORDERED: POLYETHYLENE GLYCOL (HEALTHYLAX) 3350 17 GM PACKET PO PRN (02:06)
[2024-03-10] MEDS ORDERED: SENNOSIDES 8.6MG TABLET (FP) PO ONE (02:36)
[2024-03-10] MEDS: LIDOCAINE 4% PATCH TP ONE (02:54)
[2024-03-10] MEDS: POLYETHYLENE GLYCOL (HEALTHYLAX) 3350 17 GM PACKET PO SCH (02:55)
[2024-03-10] MEDS: SENNOSIDES 8.8 MG/5 ML SYRUP PO ONE (02:56)
[2024-03-10] MEDS: POLYETHYLENE GLYCOL (HEALTHYLAX) 3350 17 GM PACKET PO ONE (03:06)
[2024-03-10] MEDS ORDERED: ACETAMINOPHEN 325 MG TABLET (FP) PO PRN (05:00)
[2024-03-10] MEDS ORDERED: hydrOXYzine PAMOATE 25 MG CAPSULE (FP) PO ONE (05:00)
[2024-03-10] MEDS: hydrOXYzine PAMOATE 25 MG CAPSULE (FP) PO ONE (05:09)
[2024-03-10] MEDS ORDERED: HEPARIN NA (PORCINE) 5,000 UNITS/ML 1ML VIAL ONE (06:21)
[2024-03-10] MEDS: HEPARIN NA (PORCINE) 5,000 UNITS/ML 1ML VIAL SQ SCH (06:31)
[2024-03-10] MEDS: CALCIUM CARBONATE 200 MG PO SCH (06:35)
[2024-03-10] MEDS ORDERED: CALCIUM CARBONATE 650 MG TABLET PO SCH (08:01)
[2024-03-10] MEDS ORDERED: INSULIN ASPART SLIDING SCALE (NOVOLOG) 1 VIAL SQ ONE (08:29)
[2024-03-10] MEDS: INSULIN (NOVOLOG) ASPART 100 UNITS/ML 10ML VIAL SQ SCH (08:34)
[2024-03-10] MEDS: MULTIVITAMINS (DAILY MVI) TABLET (FP) PO SCH (10:17)
[2024-03-10] MEDS: PANTOPRAZOLE 40 MG TABLET PO SCH (10:17)
[2024-03-10] MEDS: ASPIRIN COATED 81 MG TABLET.EC PO SCH (10:17)
[2024-03-10] MEDS: METOPROLOL TARTRATE 25 MG TABLET (FP) PO SCH (10:17)
[2024-03-10 10:38] VITALS: BP 132/69; PULSE 104; RESP 20; TEMP 97.4
[2024-03-10] MEDS ORDERED: LIDOCAINE PATCH REMOVAL MC ONE (14:00)
[2024-03-10] MEDS ORDERED: ATORVASTATIN CA 80 MG TABLET (FP) PO SCH (22:00)
[2024-03-10] MEDS ORDERED: CLOPIDOGREL BISULFATE 75 MG TABLET (FP) PO SCH (22:00)
== END 2024-03-10 14:00 | disposition left against medical advice (07) | DRG 299 ==
LOC: JER 16:55 → JERBED 03-10 00:10
PROVIDERS: ADMIT Internal Medicine; ATTEND Internal Medicine
DX: E11.52 Type 2 diabetes mellitus with diabetic peripheral angiopathy with gangrene (principal); N18.6 End stage renal disease; I12.0 Hypertensive chronic kidney disease with stage 5 chronic kidney disease or end stage renal disease; I48.91 Unspecified atrial fibrillation; Z99.2 Dependence on renal dialysis; E78.5 Hyperlipidemia, unspecified; I25.10 Atherosclerotic heart disease of native coronary artery without angina pectoris; I25.2 Old myocardial infarction; D63.8 Anemia in other chronic diseases classified elsewhere; Z79.84 Long term (current) use of oral hypoglycemic drugs; S92.502A Displaced unspecified fracture of left lesser toe(s), initial encounter for closed fracture; X58.XXXA Exposure to other specified factors, initial encounter; Y93.89 Activity, other specified; Y92.89 Other specified places as the place of occurrence of the external cause; Y99.8 Other external cause status
CPT/HCPCS: 36415; 73630-TC-LT; 73630-TC-RT-FY; 73700-TC-RT; 80053; 82962; 83735; 84100; 85025; 85610; 85651; 85730; 86140; 86850; 86900; 86901; 87040; 87070; 87186; 87205; 93005; 93010; 99285-25; J1644